=== PATIENT | female | born 1995 | race Caucasian/White ===

== ENCOUNTER 2018-09-14 19:55 | Outpatient (REF) | payer MEDICAID, SELFPAY ==
[2018-09-14 20:28] LABS: HCT 41.8 % (36.0-46.0); HGB 13.7 g/dL (12.0-15.5); Mean Corp. HGB Concentration 32.8 g/dL (32.0-36.0); Mean Corpuscular Hemoglobin 28.3 pg (27.0-33.0); Mean Corpuscular Volume 86.4 fL (80-95); Mean Platelet Volume 12.2 fL (8.0-11.0); Platelet Count 184 x1000/uL (130-400); RBC 4.84 m/cumm (4.00-5.20); RBC Distribution Width 14.9 % (11.7-14.6); White Blood Cell Count 9.16 k/cumm (4.4-10.8)
[2018-09-14 22:33] LABS: ALT 18 U/L (12-78); AST 16 U/L (15-37); Albumin 3.8 g/dL (3.4-5.0); Alkaline Phosphatase 74 U/L (46-116); Anion Gap 11.1 mmol/L (3-11); BUN 12 mg/dL (7-18); Bilirubin, Total 0.2 mg/dL (0.2-1.0); CO2 24.9 mmol/L (21.0-32.0); CREATININE 0.61 mg/dL (0.55-1.02); Calcium 9.1 mg/dL (8.5-10.1); Chloride 103 mmol/L (98-107); Glucose 122 mg/dL (70-100); Potassium 4.5 mmol/L (3.5-5.1); Sodium 139 mmol/L (136-145); Total Protein 6.5 g/dL (6.4-8.2)
[2018-09-16 10:55] LABS: Syphilis Serology (RPR) Negative (Negative)
[2018-09-16 11:20] LABS: HIV-1/2 Ag & Ab Screen Negative (NEGAT)
[2018-09-16 12:43] LABS: Chlamydia Result Negative; GC Result Negative; Specimen Description URINE
== END 2018-09-14 20:15 ==
LOC: NCHCN 19:55
PROVIDERS: PCP Physician Assistant Medical; Visit Provider Physician Assistant Medical
DX: K29.70 Gastritis, unspecified, without bleeding (principal); Z11.3 Encounter for screening for infections with a predominantly sexual mode of transmission; Z11.4 Encounter for screening for human immunodeficiency virus [HIV]
CPT/HCPCS: 80053; 85027; 87389; 87491; 87591; 86592

== ENCOUNTER 2018-10-17 18:14 | Outpatient (REF) | payer MEDICAID, SELFPAY | END 2018-10-17 18:34 | LOC: NCHCN 18:14 | PROVIDERS: PCP Physician Assistant Medical; Visit Provider Physician Assistant Medical | DX: R10.9 Unspecified abdominal pain (principal) | CPT/HCPCS: 87086 ==

== ENCOUNTER 2019-10-10 15:16 | Outpatient (REF) | payer MEDICAID, SELFPAY ==
[2019-10-10 18:50] LABS: Abs Immature Grans 0.02 k/cumm (0.0-0.09); Absolute Basophil Count 0.02 k/cumm (0.0-0.2); Absolute Lymphocyte Count 2.64 k/cumm (1.2-3.4); Absolute Monocyte Count 0.69 k/cumm (0.11-0.7); Basophils % 0.2; Eosinophils % 1.9; HCT 45.6 % (36.0-46.0); HGB 14.9 g/dL (12.0-15.5); Immature Grans % 0.2; Lymphocytes % 25.5; Mean Corp. HGB Concentration 32.7 g/dL (32.0-36.0); Mean Corpuscular Volume 88.7 fL (80-95); Mean Platelet Volume 11.5 fL (8.0-11.0); Monocytes % 6.7; Neutrophils % 65.5; Platelet Count 210 x1000/uL (130-400); RBC 5.14 m/cumm (4.00-5.20); RBC Distribution Width 14.5 % (11.7-14.6); White Blood Cell Count 10.37 k/cumm (4.4-10.8)
[2019-10-10 19:07] LABS: ALT 14 U/L (14-59); AST 12 U/L (15-37); Albumin 4.2 g/dL (3.4-5.0); Alkaline Phosphatase 83 U/L (46-116); Anion Gap 9.3 mmol/L (3-11); BUN 12 mg/dL (7-18); Bilirubin, Total 0.3 mg/dL (0.2-1.0); CO2 28.7 mmol/L (21.0-32.0); Calcium 9.2 mg/dL (8.5-10.1); Chloride 103 mmol/L (98-107); Glucose 84 mg/dL (74-106); Magnesium 2.2 mg/dL (1.8-2.4); Sodium 141 mmol/L (136-145); TSH (W/Ref FT4) 1.03 uIU/mL (0.36-3.74); Total Protein 7.1 g/dL (6.4-8.2)
== END 2019-10-10 15:36 ==
LOC: NCHCN 15:16
PROVIDERS: PCP Physician Assistant Medical; Visit Provider Physician Assistant
DX: R25.1 Tremor, unspecified (principal); R07.89 Other chest pain; G43.909 Migraine, unspecified, not intractable, without status migrainosus; Z82.0 Family history of epilepsy and other diseases of the nervous system
CPT/HCPCS: 80053; 83735; 84443; 85025

== ENCOUNTER 2019-11-09 16:15 | Outpatient (REF) | payer MEDICAID, SELFPAY ==
--- NOTE | 2019-11-09 14:45 | PAPFT_PTH ---
PATIENT: Karine Jean LOC: [facility]#:[id number] AGE/SX: 23/F ROOM: RE11/09/[address]: Varun Smith : 1995 BED: DIS: 11/09/2019 SPEC #: [id number] RECD: 11/09/19 18:15 STATUS: SOO RECeleste #: [id number] ADAN: 11/09/19 14:[address]: Varun Smith DEPT: [facility] Cytology RECD BY: Cesia Siegel ENTERED: 11/09/19 18:15 SP TYPE: PAPFT OTHR DR: Marin Rosenberg V Tissues: 1 - CX/ENDOCX FOR PAP SMEARS Procedures: PAP THIN PREP/UVM Screening Comments: [id number]
[2019-11-09 18:55] LABS: HCT 41.6 % (36.0-46.0); HGB 13.8 g/dL (12.0-15.5); Mean Corp. HGB Concentration 33.2 g/dL (32.0-36.0); Mean Corpuscular Hemoglobin 29.3 pg (27.0-33.0); Mean Corpuscular Volume 88.3 fL (80-95); Mean Platelet Volume 11.4 fL (8.0-11.0); Platelet Count 200 x1000/uL (130-400); RBC 4.71 m/cumm (4.00-5.20); RBC Distribution Width 14.1 % (11.7-14.6); White Blood Cell Count 12.07 k/cumm (4.4-10.8)
[2019-11-09 19:09] LABS: C-Reactive Protein 0.25 mg/dL (0.0-0.3)
[2019-11-09 19:52] LABS: ESR 12 mm/hr (0-20)
[2019-11-13 11:20] LABS: HIV-1/2 Ag & Ab Screen Negative (Negative)
[2019-11-13 11:37] LABS: Hepatitis C Ab w Rflx HCV PCR Negative (Negative)
[2019-11-13 13:00] LABS: Syphilis Serology (RPR) Negative (Negative)
[2019-11-14 07:52] LABS: Chlamydia Result Negative (Negative); GC Result Negative (Negative)
== END 2019-11-09 16:35 ==
LOC: NCHCN 16:15
PROVIDERS: PCP Physician Assistant Medical; Visit Provider Internal Medicine
DX: N73.9 Female pelvic inflammatory disease, unspecified (principal); Z11.4 Encounter for screening for human immunodeficiency virus [HIV]; Z11.3 Encounter for screening for infections with a predominantly sexual mode of transmission; Z11.59 Encounter for screening for other viral diseases; Z12.4 Encounter for screening for malignant neoplasm of cervix
CPT/HCPCS: 85027; 85652; 86803; 87389; 87491; 87591; 88142; 86140; 86592; 87480; 87510; 87660

== ENCOUNTER 2020-06-18 17:17 | Outpatient (REF) | payer MEDICAID, SELFPAY ==
--- NOTE | 2020-06-18 16:30 | PAPFT_PTH ---
PATIENT: Karine Jean LOC: [facility]#:[id number] AGE/SX: 24/F ROOM: RE06/18/[address]: Nery Barreto : 1995 BED: DIS: 06/18/2020 SPEC #: [id number] RECD: 06/19/20 12:52 STATUS: SOO REQ #: [id number] ADAN: 06/18/20 16:[address]: Nery Barreto DEPT: [facility] Cytology RECD BY: Cesia Siegel ENTERED: 06/19/20 12:53 SP TYPE: PAPFT OTHR DR: Marin Rosenberg V Tissues: 1 - CX/ENDOCX FOR PAP SMEARS Procedures: PAP THIN PREP/UVM Screening Comments: [id number]
[2020-06-18 20:23] LABS: Abs Immature Grans 0.04 10^3/uL (0.0-0.06); Absolute Basophil Count 0.03 10^3/uL (0.0-0.2); Absolute Lymphocyte Count 2.41 10^3/uL (1.2-3.4); Absolute Monocyte Count 0.41 10^3/uL (0.1-0.8); Absolute Neutrophil Count 7.07 10^3/uL (1.2-6.7); Basophils % 0.3; HCT 42.7 % (36.0-46.0); HGB 13.7 g/dL (11.2-15.7); Immature Grans % 0.4; MCH 29.2 pg (27.0-33.0); MCHC 32.1 % (32.0-36.0); MPV 12.1 fL (8.0-11.0); Monocytes % 4.1; Neutrophils % 70.2; Nucleated RBC 0 %; Platelet Count 195 10^3/uL (130-400); RBC 4.69 10^6/uL (3.93-5.22); RDW 13.5 % (11.7-14.6); RDW-SD 45.1 fL; WBC 10.06 10^3/uL (4.4-10.8)
[2020-06-18 20:39] LABS: Iron 88 ug/dL (50-170)
[2020-06-18 20:40] LABS: Anion Gap 8.6 mmol/L (3-11); BUN 19 mg/dL (7-18); CO2 26.4 mmol/L (21.0-32.0); CREATININE 0.63 mg/dL (0.55-1.02); Calcium 9.5 mg/dL (8.5-10.1); Chloride 105 mmol/L (98-107); Glucose 91 mg/dL (74-106); Sodium 140 mmol/L (136-145)
[2020-06-18 20:53] LABS: HCG Qual (Serum) Negative
== END 2020-06-18 17:37 ==
LOC: NCHCN 17:17
PROVIDERS: PCP Physician Assistant Medical; Visit Provider Physician Assistant
DX: R10.2 Pelvic and perineal pain (principal); N93.9 Abnormal uterine and vaginal bleeding, unspecified; Z12.4 Encounter for screening for malignant neoplasm of cervix
CPT/HCPCS: 80048; 88142; 83540; 84703; 85025

== ENCOUNTER 2020-08-14 15:06 | Outpatient (REF) | payer MEDICAID, SELFPAY ==
[2020-08-16 21:28] LABS: SARS-CoV-2 RNA Undetected (Undetected); SARS-CoV-2 Specimen Source Nasal
== END 2020-08-14 15:26 ==
LOC: NCHCN 15:06
PROVIDERS: PCP Physician Assistant; Visit Provider Physician Assistant
DX: J06.9 Acute upper respiratory infection, unspecified (principal)
CPT/HCPCS: U0003

== ENCOUNTER 2020-08-28 15:08 | Outpatient (REF) | payer MEDICAID, SELFPAY ==
[2020-08-28 21:06] LABS: Abs Immature Grans 0.03 10^3/uL (0.0-0.06); Absolute Basophil Count 0.03 10^3/uL (0.0-0.2); Absolute Eosinophil Count 0.19 10^3/uL (0.0-0.7); Absolute Lymphocyte Count 2.52 10^3/uL (1.2-3.4); Absolute Monocyte Count 0.42 10^3/uL (0.1-0.8); Absolute Neutrophil Count 6.13 10^3/uL (1.2-6.7); Basophils % 0.3; HCT 43.1 % (36.0-46.0); HGB 13.8 g/dL (11.2-15.7); Immature Grans % 0.3; MCH 28.6 pg (27.0-33.0); MCV 89.2 fL (80-95); MPV 11.8 fL (8.0-11.0); Monocytes % 4.5; Neutrophils % 65.9; Nucleated RBC 0 %; Platelet Count 198 10^3/uL (130-400); RBC 4.83 10^6/uL (3.93-5.22); RDW-SD 42.5 fL; WBC 9.32 10^3/uL (4.4-10.8)
[2020-08-28 21:47] LABS: Iron 86 ug/dL (50-170); Total Iron Binding Capacity 311 ug/dL (250-450); Transferrin Sat 28 % (15-50)
[2020-08-28 22:25] LABS: ALT 18 U/L (14-59); AST 18 U/L (15-37); Albumin 4.3 g/dL (3.4-5.0); Alkaline Phosphatase 82 U/L (46-116); BUN 15 mg/dL (7-18); Bilirubin, Total 0.3 mg/dL (0.2-1.0); Calcium 9.2 mg/dL (8.5-10.1); Chloride 103 mmol/L (98-107); Ferritin 37 ng/mL (8-252); Glucose 92 mg/dL (74-106); Potassium 4.1 mmol/L (3.5-5.1); Sodium 138 mmol/L (136-145); TSH (W/Ref FT4) 1.73 uIU/mL (0.36-3.74); Total Protein 7.4 g/dL (6.4-8.2); Vitamin B12 489 pg/mL (193-986)
[2020-08-28 23:51] LABS: FREE T4 1.28 ng/dL (0.76-1.46)
[2020-08-29 05:21] LABS: Vitamin D 25 Total 13.7 ng/ml (30-100)
[2020-08-29 18:30] LABS: T3, Total 132 ng/dL (97-169)
== END 2020-08-28 15:28 ==
LOC: NCHCN 15:08
PROVIDERS: PCP Physician Assistant; Visit Provider Physician Assistant
DX: J06.9 Acute upper respiratory infection, unspecified (principal); R53.83 Other fatigue; R63.5 Abnormal weight gain; R00.2 Palpitations
CPT/HCPCS: 80053; 82306; 82607; 82728; 83540; 83550; 84439; 84443; 84480; 85025

== ENCOUNTER 2021-01-07 16:01 | Outpatient (REF) | payer MEDICAID, SELFPAY ==
[2021-01-13 14:37] LABS: IgA 97 mg/dL (85-499); Interpretation (See Note); Tissue Transglutaminase IgA <1.2 U/mL (<4.0)
== END 2021-01-07 16:02 | disposition home or self-care (01) ==
LOC: NCHCN 16:01
PROVIDERS: PCP Physician Assistant; Visit Provider Physician Assistant
DX: R14.0 Abdominal distension (gaseous) (principal)
CPT/HCPCS: 82784; 83516

== ENCOUNTER 2021-04-30 20:07 | Emergency (ER) | payer MEDICAID, SELFPAY ==
[2021-04-30 20:38] VITALS: BP 126/77; PULSE 99; RESP 18; TEMP 36.9; O2SAT 97
--- NOTE | 2021-04-30 21:10 | ED.GENADUL_ITS ---
Discharge Plan Disposition Patient Disposition: HOME Condition: Stable Discharge Details Clinical Impression: Cellulitis Primary Care Provider: Nery Barreto ED Provider: Radha Mendoza Home Meds and New Rx's Prescriptions: New ciprofloxacin HCl [Cipro] 500 mg tablet 500 mg PO BID Qty: 14 RF: 0 Discharge Instructions Instructions: Cellulitis (ED) Additional Instructions: warm moist compresses 4 times daily elevate leg as much as possible during the day continue antibiotics as previously prescribed. add ciprofloxacin 500 mg twice daily Referrals: Nery Barreto [Primary Care Provider] - (in 1-2 days for recheck) Discharge Data Discharge Date/Time-TO BE ENTERED AT DEPARTURE: 04/30/21 21:46 Medical Decision Making This is a 25-year-old who presents to the emergency department after being started on clindamycin for right lower extremity cellulitis. There was no noted drainable abscess on her first evaluation. The erythema as well within skin markings on the original lesion there has been development of a second lesion proximal to the first. Again there is no fluctuant area noted for drainage. She has no systemic signs of infection. She has only received 3 doses of clindamycin so I do not feel she has failed oral antibiotics at this point as it has not even been 24 hours. In addition to that her original lesion has receded from the marked area. No labs are obtained I feel it is reasonable to continue with the clindamycin as previously directed but will add ciprofloxacin and these antibiotics are chosen secondary to her allergy profile where she is allergic to sulfa and pcn. She is safe for discharge home has been given instructions for elevation warm moist compresses and to continue antibiotics she should call her primary care provider tomorrow morning for follow-up appointments and rehab Medical Records Medical records reviewed: Yes I reviewed the patient's medical records. Medical records narrative: Medical records have been obtained from [facility] and reviewed HPI General Mode of arrival: ambulatory . Date/Time Provider Initiated Documentation: 04/30/21 20:29 . Limitations to Documentation: no limitations . Information obtained by: patient . HPI Narrative: Patient presents to the emergency department after being evaluated last evening at [facility] for complaints of right lower extremity erythema most consistent with an insect bite. There was a central area that she says was having some drainage. The area is marked with a skin marker and the erythema from this wound was well within the skin markings. There is a second wound proximal that is not marked with the appearance of a 2 mm bite saturnino with approximately 4 cm surrounding erythema. There is no fluctuant area identified. She was placed on clindamycin and has taken 3 doses she has not had fever or signs of systemic infection Related Data Home Medications Medication Instructions Recorded Confirmed ciprofloxacin HCl [Cipro] 500 mg PO BID #14 tab 04/30/21 Previous Rx's Medication Instructions Recorded ciprofloxacin HCl [Cipro] 500 mg PO BID #14 tab 04/30/21 Allergies Allergy/AdvReac Type Severity Reaction Status Date / Time citalopram Allergy Other (See Unverified 04/30/21 20:43 Comment) Penicillins Allergy Skin Rash Unverified 04/30/21 20:43 acetaminophen [From Vicodin] AdvReac Other (See Unverified 04/30/21 20:43 Comment) hydrocodone [From Vicodin] AdvReac Other (See Unverified 04/30/21 20:43 Comment) sertraline [From Zoloft] AdvReac Visual Unverified 04/30/21 20:43 Disturbances General Stated Complaint: RashLesion MARCOS: 3 Review of Systems Constitutional Constitutional: Denies fever(s) Cardiovascular Cardiovascular: Denies chest pain Respiratory Respiratory: Denies cough Musculoskeletal Musculoskeletal: Denies myalgias, Denies arthralgias and Denies joint swelling Integumentary/Breasts Skin/Breast: Reports lesions and Reports rash PFSH Social History Smoking/Tobacco Use Status: Never Smoking risk assessment performed?: Yes Alcohol Intake: current Drug use: Never Substance use type: does not use Do you feel safe at home: Yes Do you feel safe in your relationship?: Yes Exam Const General: cooperative, healthy appearing, comfortable, no acute distress and well developed Nutritional Appearance: average body habitus Orientation: alert, awake and oriented x3 HENMT Head: normal to inspection Mouth: oral mucosae normal Resp Effort & Inspection: normal respiratory effort Cardio Rate: regular rate Rhythm: regular rhythm Skin Lesions: lesion noted (two areas on right lower extremity approx 2 mm consistent with insect bite) Rashes: rashes noted (Surrounding erythema well within skin markings on lesion 1) Other: There is no fluctuant area appreciated. Area of erythema surrounding both lesions approximately 4 cm Neuro General: patient alert, patient awake and patient oriented x3 Extrem General: normal to inspection, full ROM and no pedal edema Course Vital Signs Vital signs: Vital Signs Temperature 36.9 C 04/30/21 20:38 Pulse 99 H 04/30/21 20:38 Respiratory Rate 18 04/30/21 20:38 Blood Pressure 126/77 04/30/21 20:38 Pulse Oximetry 97 04/30/21 20:38 Temperature 36.9 C 04/30/21 20:38 Pulse 99 H 04/30/21 20:38 Respiratory Rate 18 04/30/21 20:38 Blood Pressure 126/77 04/30/21 20:38 Blood Pressure Position Sitting 04/30/21 20:38 Pulse Oximetry 97 04/30/21 20:38 Oxygen Delivery Method Room Air 04/30/21 20:38 Oxygen Flow Rate 0 04/30/21 20:38 Pain Level 8 04/30/21 20:38
== END 2021-04-30 21:46 | disposition home or self-care (01) ==
PROVIDERS: Emergency Provider Nurse Practitioner Acute Care; PCP Physician Assistant
DX: L03.115 Cellulitis of right lower limb (principal)
CPT/HCPCS: 99283

== ENCOUNTER 2021-05-01 19:34 | Emergency (ER) | payer MEDICAID, SELFPAY ==
[2021-05-01 19:41] VITALS: BP 123/78; PULSE 96; RESP 18; TEMP 36.4; O2SAT 98
--- NOTE | 2021-05-01 20:44 | ED.GENADUL_ITS ---
Discharge Plan Disposition Patient Disposition: HOME Condition: Stable Discharge Details Clinical Impression: Cellulitis of left leg Primary Care Provider: Marin Rosenberg V ED Provider: David Schuster Home Meds and New Rx's Prescriptions: No Action naproxen 500 mg tablet 500 mg PO BID PRN (Reason: pain) Qty: 30 RF: 3 sumatriptan succinate [Imitrex] 50 mg tablet See Rx Instructions PO .COMPLEX Qty: 10 RF: 2 citalopram 20 mg tablet 20 mg PO DAILY Qty: 60 RF: 6 alprazolam [Xanax] 0.5 mg tablet 0.5 mg PO DAILY PRN (Reason: anxiety) Qty: 30 RF: 0 Lupron Depot 3.75 mg syringe kit 3.75 mg IM QMONTH Qty: 1 RF: 5 clindamycin HCl 300 mg capsule 300 mg PO QID RF: 0 ciprofloxacin HCl 500 mg tablet 500 mg PO BID RF: 0 Discharge Instructions Instructions: Cellulitis (ED) Additional Instructions: At this time I am concerned that you have a small DVT/blood clot in your leg. You do need a formal ultrasound to evaluate this further. We have given you a dose of Lovenox which will last 24 hours, this is a blood thinner. In regards to the infection on your leg, there is no evidence of abscess at this time, however this still needs to be watched and followed closely. Please follow-up in the emergency department tomorrow after your ultrasound for reassessment and discussion of the ultrasound findings. Please continue taking your antibiotics as directed, and continue monitoring the redness around your leg closely. Keep your leg elevated as often as possible. Please use a compression stocking if this is tolerable. If you notice any worsening of your symptoms, or any new symptoms such as vomiting, diarrhea, fever, chills, shortness of breath, chest pain, numbness, weakness, or fainting , please return immediately to the emergency department for reevaluation. Please follow up with your primary care provider as soon as possible for reassessment and reevaluation. As always, it was a pleasure participating in your medical care today. Referrals: Marin Rosenberg V [Primary Care Provider] - Medical Decision Making 25-year-old female with a past medical history of multiple antibiotic allergies, presents for evaluation of wound recheck. Patient was bit on the left leg by an unknown insect or etiology, month ago, 4 days ago she was seen by her primary care provider when she noticed rash redness and some mild drainage. She was started on clindamycin at that time. She has been taking this as directed, but was seen yesterday in our emergency department and an additional Cipro was added to her regimen. She comes back for wound recheck today. She has been taking the antibiotics as directed. She denies fever or chills. She admits to continued soreness in the area of focus on the left medial thigh, and does admit to mild soreness proximally and distally to it. She denies any new trauma. She denies any other significant change in pain. She denies any control use and states that her tubes are tied. She denies any estrogen use. She denies any history of blood clots. She does not feel that the redness has g margie worse at this time. No other complaints at this time. No other modifying factors. Resume rest physical exam demonstrates erythema left medial leg, there are 2 purple rings that were outlined, and the 2 stages of redness appear to be well circumscribed within them. And not extravasating out from them. No evidence of abscess. She appears to be responding well to the antibiotic therapy. However there does appear to be concern for potential DVT in the posterior popliteal space/vessels. No ultrasound formally is available at this time. She has no chest pain or shortness of breath, no tachycardia or hypoxemia. No evidence of pulmonary embolism. With no fever or any evidence of worsening infection I do not see an indication for changing or altering her antibiotic therapy at this time. No indication for IV antibiotics currently. However with the potential for mild DVT I do feel that formal ultrasound is indicated. We will give a dose of 1.5 mg/kg of Lovenox, for 24-hour DVT treatment, and schedule outpatient ultrasound tomorrow morning. Recommend follow-up in the ED for reassessment. Discussed red flags which to return. Patient notably stable at time of discharge. Also of note the patient states that her primary care provider did discuss getting an outpatient surgical evaluation. No indication for emergent inpatient surgical eval at this time. At the patient's request we will place an outpatient surgical referral for more chronic wound assessment. We do recommend that the patient keep her leg elevated as often as possible. Discussed red flags which to return. Of note the patient seems to have 2 accounts under the same name. The patient says that yesterday is not found in the chart under this current name/visit. The case has been sent to [facility]/medical records for unification of these 2 accounts. I have extensively reviewed the treatment plan and discharge instructions with the patient. I have addressed all patient concerns at this time. The patient was made aware of what symptoms to monitor for that would warrant a return to the emergency department. Discussed the plan with the patient, they demonstrate verbal understanding and agreement with our assessment and plan at this time. The documentation in this chart was dictated using Twitter dictation software. Please excuse any dictation errors. HPI General Date/Time Provider Initiated Documentation: 05/01/21 19:35 . HPI Narrative: 25-year-old female with a past medical history of multiple antibiotic allergies, presents for evaluation of wound recheck. Patient was bit on the left leg by an unknown insect or etiology, month ago, 4 days ago she was seen by her primary care provider when she noticed rash redness and some mild drainage. She was started on clindamycin at that time. She has been taking this as directed, but was seen yesterday in our emergency department and an additional Cipro was added to her regimen. She comes back for wound recheck today. She has been taking the antibiotics as directed. She denies fever or chills. She admits to continued soreness in the area of focus on the left medial thigh, and does admit to mild soreness proximally and distally to it. She denies any new trauma. She denies any other significant change in pain. She denies any control use and states that her tubes are tied. She denies any estrogen use. She denies any history of blood clots. She does not feel that the redness has gotten worse at this time. No other complaints at this time. No other modifying factors. She denies any chest pain or shortness of breath. Related Data Home Medications Medication Instructions Recorded Confirmed naproxen 500 mg tablet 500 mg PO BID PRN #30 tab 06/24/20 12/31/20 alprazolam 0.5 mg tablet 0.5 mg PO DAILY PRN #30 tab 07/25/20 12/31/20 citalopram 20 mg tablet 20 mg PO DAILY #60 tab 07/25/20 05/01/21 sumatriptan succinate 50 mg tablet See Rx Instructions PO .COMPLEX 08/06/20 12/31/20 #10 tab leuprolide 3.75 mg intramuscular 3.75 mg IM QMONTH #1 ea 01/28/21 01/28/21 syringe kit ciprofloxacin HCl 500 mg PO BID 05/01/21 05/01/21 clindamycin HCl 300 mg PO QID 05/01/21 05/01/21 Previous Rx's Medication Instructions Recorded naproxen 500 mg tablet 500 mg PO BID PRN #30 tab 06/24/20 alprazolam 0.5 mg tablet 0.5 mg PO DAILY PRN #30 tab 07/25/20 citalopram 20 mg tablet 20 mg PO DAILY #60 tab 07/25/20 sumatriptan succinate 50 mg tablet See Rx Instructions PO .COMPLEX 08/06/20 #10 tab leuprolide 3.75 mg intramuscular 3.75 mg IM QMONTH #1 ea 01/28/21 syringe kit Allergies Allergy/AdvReac Type Severity Reaction Status Date / Time acetaminophen [From Vicodin] Allergy Severe get very Verified 09/18/20 14:05 mad and blacks out. adhesive Allergy Severe itchy and Verified 09/18/20 14:05 blisters amoxicillin Allergy Severe Hives Verified 09/18/20 14:05 ethinyl estradiol Allergy Severe hives, Verified 09/18/20 14:05 [From Aviane] tachycardia hydrocodone [From Vicodin] Allergy Severe get very Verified 09/18/20 14:05 mad and blacks out. hydromorphone [From Dilaudid] Allergy Severe migrain Verified 09/18/20 14:05 headache, hot flashes levonorgestrel [From Aviane] Allergy Severe hives, Verified 09/18/20 14:05 tachycardia naproxen Allergy Severe abdominal Verified 09/18/20 14:05 pain Penicillins Allergy Severe hives Verified 09/18/20 14:05 sertraline [From Zoloft] Allergy Severe hallucinati Verified 09/18/20 14:05 ons Sulfa (Sulfonamide Allergy Severe nose Verified 06/24/20 13:35 Antibiotics) bleeds, vomiting General Stated Complaint: GenMedical MARCOS: 3 Review of Systems All systems reviewed & are unremarkable except as noted in HPI and below PFSH Medical History Chronic pelvic pain in female Onset with menarche. Not responsive to OCPs. 07/2020. Depo-Lupron 7.5 mg #1 dose. Endometriosis Sterilization BTL at time of final . Surgical History H/O laparoscopy For chronic pelvic pain. Laparoscopic fulguration of endometriosis implants. History of delivery X3. 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 3.ENT: Atraumatic external nose and ears. Moist MM. Neck: Symmetric, trachea midline, No thyromegaly. 4.CVS: +S1/S2, No murmurs or gallops. Peripheral pulses 2+ and equal in all extremities. Brisk capillary refill in all extremities. 5.RESP: Unlabored respiratory effort. Clear to auscultation bilaterally. No wheezes rales or rhonchi 6.GI: Soft, Nontender/Nondistended, No hepatosplenomegaly. No guarding or rebound. 7.MSK: Normocephalic/Atraumatic, Extremities w/o deformity, No cyanosis or clubbing, Normal movement of all extremities. Left medial calf demonstrates 2 small central lesions, both about an inch and 1/2 to 2 inches apart, mild redness and bruising around it. The area of most pronounced redness is well circumscribed by the purple marker, there is an area of ping pong table assembler erythema surrounding this, with a diameter of roughly 7 to 8 cm. This is also well demarcated by the purple marker that was placed yesterday. There does not seem to be extravasation past this marked site at this time. Mild tenderness to the area. Bedside limited ultrasound shows no evidence of fluctuance abscess or fluid collection. However bedside vascular ultrasound traveling up towards the knee does demonstrate diminished capability of compression for the deeper veins around the knee itself. Concern for potential DVT. Distal pulses and sensation intact. 8.Skin: Warm, Dry. 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 Sensation grossly intact, no focal neurologic deficits. 10.Psych: (AAO) x3. Appropriate mood and affect Course Vital Signs Vital signs: Vital Signs Temperature 36.4 C L 05/01/21 19:41 Pulse 96 H 05/01/21 19:41 Respiratory Rate 18 05/01/21 19:41 Blood Pressure 123/78 05/01/21 19:41 Pulse Oximetry 98 05/01/21 19:41 Temperature 36.4 C L 05/01/21 19:41 Pulse 96 H 05/01/21 19:41 Respiratory Rate 18 05/01/21 19:41 Respiratory Effort 05/01/21 20:15 Blood Pressure 123/78 05/01/21 19:41 Blood Pressure Position Sitting 05/01/21 19:41 Pulse Oximetry 98 05/01/21 19:41 Oxygen Delivery Method Room Air 05/01/21 19:41 Oxygen Flow Rate 0 05/01/21 19:41 Pain Level 5 05/01/21 19:41
[2021-05-01] MEDS: Enoxaparin 120 MG/0.8 ML SYR SC (21:00)
--- NOTE | 2021-05-01 22:09 | NUR.NOTE ---
referral [facility]ed to [facility] to f/u in 1-2wks, chronic wound.Nursing Note:
== END 2021-05-01 22:07 | disposition home or self-care (01) ==
PROVIDERS: Emergency Provider Student in an Organized Health Care Education/Training Program; PCP Physician Assistant Medical
DX: L03.116 Cellulitis of left lower limb (principal)
CPT/HCPCS: 96372; 99284; 99282; J1650

== ENCOUNTER 2021-05-02 11:57 | Outpatient (CLI) | payer MEDICAID, SELFPAY ==
--- NOTE | 2021-05-02 | DI.US_ITS ---
Exam(s) US LOWER EXTREMITY VENOUS LT EXAM: US LOWER EXTREMITY VENOUS LT CLINICAL HISTORY: SWELLING, CELLULITIS, ? DVT. TECHNIQUE: Lower extremity venous ultrasound performed using grayscale, color-flow, and spectral Do ppler analysis. COMPARISON: No exams were available for comparison FINDINGS: The common femoral, femoral and popliteal veins demonstrate normal compressibility, augmentation, and color Doppler. The posterior tibial veins are patent. No saphenous vein thrombosis or other superfi cial venous thrombosis is seen. No hematoma or Benjamin's cyst is seen. IMPRESSION: Negative lower extremity ultrasound. No evidence of DVT. DATA REPOSITORY:
== END 2021-05-02 12:17 ==
PROVIDERS: PCP Physician Assistant Medical; Visit Provider Student in an Organized Health Care Education/Training Program
DX: L03.116 Cellulitis of left lower limb (principal)
CPT/HCPCS: 93971

== ENCOUNTER 2021-05-02 12:05 | Emergency (ER) | payer MEDICAID, SELFPAY ==
--- OUTSIDE RECORDS SUMMARY | 2021-05-02 12:10 | XMS_ITS ---
:1995 Author Care Team Providers Name Role Phone BRAYAN LAY Primary Care Provider [phone] Allergies Code Code Name Reaction Severity Status Onset System Adhesive Tape Edema ? Active ? Aviane Hives ? Active ? ? Tachycardia ? Active ? 335162 RxNorm Dilaudid Headache Moderate to Active ? Severe 7258 RxNorm Naproxen Abdominal Pain ? Active ? Penicillins Hives ? Active ? Sulfa Vomiting Moderate to Active ? (Sulfonamide Severe Antibiotics) 012786 RxNorm Tylenol-codeine Headache Moderate to Active ? #3 Severe 093307 RxNorm Vicodin Hallucinations ? Active ? 77223 RxNorm Zoloft Hallucinations ? Active ? Medications Name Status Start Date Stop Date ? ? amoxicillin 875 mg tablet Completed 02/18/20162015 1 (one) Tablet: bid - twice daily Anusol-HC 2.5 % topical cream with perineal applicator Completed 08/05/2012 08/23/2012 apply Cream: to hemorrhoids tid prn Ativan 0.5 mg tablet Completed 06/22/2016 06/23/2016 1 (one) Tablet: 1 hour prior to procedure and may repeat in 45 minutes Aviane 0.1 mg-20 mcg tablet Completed 10/11/201302/2013 1 Tablet: daily azithromycin 250 mg tablet Completed ? 11/22 Bactrim DS 800 mg-160 mg tablet Completed 08/05/2012 08/08/2012 1 Tablet: bid - twice daily Bactroban 2 % topical ointment Completed 09/08/2012 1 11/08/2011 apply Ointment: bid - twice daily cephalexin 250 mg capsule Completed 10/11/20132012 1 Capsule: qid - four times a day cephalexin 500 mg tablet Completed 03/21/201403/31/2 014 1 (one) Tablet Tablet: four times daily citalopram 10 mg tablet Completed 01/08/2020 04/02/20 20 1 (one)and 11/09 : daily citalopram 20 mg tablet Active ? Not avai lable Take 1 tablet every day by oral route. clindamycin 1.2 % (1 % base)-benzoyl peroxide 5 % topical ge l Completed 02/28/2015 08/01/2015 1 (one) Unspecified Unspecified: daily clindamycin HCl 300 mg capsule Active ? N ot available Take 1 capsule 4 times a day by oral route for 10 days. cyclobenzaprine 10 mg tablet Completed ? Depo-Provera 150 mg/mL intramuscular suspension Completed 09/22/2012 09/22/2012 1 Suspension: Every three months Diflucan 150 mg tablet Unknown 03/29/2014 Not avail able 1 (one) Tablet: one time dose doxycycline hyclate 100 mg capsule Active ? Not available Take 1 capsule twice a day by oral route. doxycycline hyclate 100 mg Completed ? 11/22 tablet E-Z Spacer Completed 03/07/2013 03/07/2013 1 Device: daily erythromycin with ethanol 2 % topical gel Completed 201104/20/2012 1 Gel: qhs - at bedtime etodolac 400 mg tablet Completed 09/22/2012 3 1 Tablet: two times daily ferrous gluconate 324 mg (38 mg iron) tablet Completed 12/25/2014 1 (one) Tablet: two times daily fexofenadine 60 mg tablet Completed 04/20/20122011 1 Tablet: bid - twice daily Flovent HFA 44 mcg/actuation aerosol inhaler Completed 12/02/2015 2 (two) Puff: two times daily fluticasone propionate 50 Completed ? 2019 mcg/actuation nasal spray,suspension ibuprofen 600 mg tablet Completed 07/17/2013 04/17/20 14 1 Tablet: tid - three times a day Kapvay 0.1 mg tablet,extended release Completed ? 03/29/2020 Take 1 tablet every day by oral route at bedtime. Keflex 500 mg capsule Completed 02/18/2016 02/25/2016 1 (one) Capsule: tid - three times a day Loestrin /20 (21) 1 mg-20 mcg tablet Completed 12/05/2013 12/05/2013 1 (one) Tablet: daily loratadine 10 mg tablet Completed 02/01/2013 06/20/20 13 1 Tablet: daily meclizine 12.5 mg tablet Completed 09/08/2012 013 half - 1 Tablet: every 8 hours prn vertigo meclizine 25 mg tablet Completed 06/12/2014 5 (one half) to 1 Tablet Tablet: Up to four times daily meloxicam 7.5 mg tablet Completed 03/13/2015 08/01/20 15 1 (one) Tablet Tablet: qd - daily naproxen 500 mg tablet Completed ? 0 Ortho Evra 150 mcg-35 mcg/24 hr transdermal patch Completed 12/05/2013 12/05/2013 1 Patch WK: weekly Percocet 5 mg-325 mg tablet Completed 07/27/201307/09 1 Tablet: Q 4hr/PRN prednisone 20 mg tablet Completed ? 11/22/19 20 -Folic Acid 27 mg-1 mg tablet Completed 03/28/2014 12/25/2014 1 (one) Tablet(s) Tablet(s): daily Prilosec 20 mg capsule,delayed release Completed 2 12/09/[address]: daily Protonix 40 mg tablet,delayed release Completed 01/18/2015 01/18/2015 1 (one) Tablet DR: daily ranitidine 150 mg capsule Completed 01/18/20152014 1 (one) Capsule Capsule: bid - twice daily ranitidine 150 mg tablet Completed 08/28/2014 015 1 (one) Tablet: bid - twice daily NEEDED Singulair 10 mg tablet Completed 09/05/2013 3 1 Tablet: one daily Terazol 3 0.8 % vaginal cream Completed 02/18/2016 1 (one) Applicator(s): at bedtime Terazol 7 0.4 % vaginal cream Completed 03/29/2014 1 (one) Cream: qhs - at bedtime trazodone 50 mg tablet Completed 04/20/2012 2 2 (two) Tablet: qhs - at bedtime triamcinolone acetonide 0.025 % topical cream Completed 08/01/2015 1 (one) Cream Cream: daily triamcinolone acetonide 0.1 % topical cream Active ? Not available APPLY A THIN LAYER TO THE AFFECTED AREA(S) BY TOPICAL ROUTE 2 T IMES PER DAY Tylenol-Codeine #3 300 mg-30 mg tablet Completed 12/25/2014 1-2 tablet(s): Every 6 hours as needed Xopenex HFA 45 mcg/actuation aerosol inhaler Completed 02/22/2014 2 (two) inhalations: Every 4 to 6 hours as needed Zofran 4 mg tablet Completed ? 03/29/2020 1 (one) Tablet every 6 hours prn nausea Problems Name Status Onset Date Source ? Anxiety Active ? ? Generalized Anxiety Disorder Active ? His tory Posttraumatic Stress Disorder Active ? ? Depressive Disorder Active ? History Acute Bronchitis Active ? History Disorder of Upper Respiratory System Active ? History Mild Intermittent Asthma Active ? History Endometriosis of Pelvic Peritoneum Active ? History Amenorrhea Active ? History Mild Hyperemesis Gravidarum Active ? Hist ory Anemia in Mother Complicating , Active ? History Childbirth AND/OR Puerperium Acne Active ? History Pain in Thoracic Spine Active ? History Low Back Pain Active ? History Sciatica Active ? History Muscle Pain Active ? History Lack of Energy Active ? History Headache Active ? History Palpitations Active ? History Lymphadenopathy Active ? History Cough Active ? History Dysuria Active ? History Electrocardiogram Abnormal Active ? Histo ry Routine Care Active ? History Venereal Disease Screening Active ? Histo ry Disorder of Active ? History Finding of Esophagus Active ? History Procedure Active ? History Radha Infection of Genital Region Active ? History Pelvic and Perineal Pain Active ? History Inflammatory Dermatosis Active ? History Procedure by Method Active ? History Procedures Date Name Performed by ? ? Bilateral Tubal Ligation Information not available ? Laparoscopy Diagnostic Information not a vailable Notes: endometriosis ? Dilation and Curettage Information not a vailable ? [place] Teeth Extraction Information not available ? Caesarean Section Information not avai lable Notes: x3 plus T/L 11/22/2019 US, Pelvis, Transabdominal + [facility] (Internal) Transvaginal [address] [place] [address] (Work Place) 03/11/2020 US, Pelvis, Transabdominal + [facility] (Internal) Transvaginal [address] [place] [address] (Work Place) Results Lab Results Date Name Specimen Result Interpretation Description Value Range Status Address ? 12/12/2019 Pathology Study TISS ? Report (see below) ? Final [facility] ab (Internal) : [address] 10/13/2019 Urinalysis, UR - UA-color yellow pale Final Hematite Dipstick, yellow [facility] (Internal) : [address] ? ? UR ABNORMA UA-appear cloudy clear Final [facility] ab (Internal) : [address] ? ? UR - UA-spec 1.020 1.003- Final Hematite Grav 1.035 [facility] ab (Internal) : [address] ? ? UR - UA-pH 7.0 [pH] 4.6-8. Final [place] [address] [pH] [facility] ab (Internal) : [address] ? ? UR - UA-leuk negative negati Final [facility] ab (Internal) : [address] ? ? UR - UA-nitrite negative negati Final [facility] ab (Internal) : [address] ? ? UR ABNORMA UA-prot trace negati Final [facility] ab (Internal) : [address] ? ? UR - UA-gluc negative negati Final [facility] ab (Internal) : [address] ? ? UR - UA-ketone negative negati Final [facility] ab (Internal) : [address] ? ? UR - UA-urobil normal normal Final [facility] ab (Internal) : [address] ? ? UR - UA-bili negative negati Final [facility] ab (Internal) : [address] ? ? UR - UA-blood negative negati [facility] ab (Internal) : [address] 10/13/2019 Urinalysis, UR - UA-WBC 0-3 [hpf] 0-3 [facility] [hpf] [facility] (Internal) : [address] ? ? UR - UA-RBC 0-2 [hpf] 0-2 Final Hematite [hpf] [facility] (Internal) : [address] t ? ? UR - UA-bacteri rare [hpf] none Final N orth a seen Country [hpf] Hospital [facility] ab (Internal) : [address] ? ? UR ABNORMA UA-epithel few [hpf] none Final N orth L ial seen [facility] [hpf] Hospital L ab (Internal) : [address] t ? ? UR ABNORMA UA-mucus few [hpf] none Final Nor th L seen [facility] [hpf] Hospital L ab (Internal) : [address] ? ? UR - Amorph many [hpf] ? Final [facility] (Internal) : [address] 10/13/2019 Test, UR - Hcgu negative negati Fi nal Hematite Urine ve [facility] (Internal) : [address] 01/14/2018 Venipuncture BLD ? Venpn* ? ? Final [facility] (Internal) : [address] 01/14/2018 Prolactin, S ? Prolactin 18.2 NG/mL ? F inal [facility] (Internal) : [address] 01/14/2018 CBC W/ Auto BLD High Wbc 10.1 5.0-10 Final N orth Diff 10*3/uL .0 [facility] 10*3/u Hospital L ab L (Internal) : [address] ? ? BLD ? Rbc 4.74 4.10-5 [facility] 10*6/uL .30 [facility] 10*6/u Hospital L ab L (Internal) : [address] ? ? BLD ? Hgb 12.1 g/dL 12.0-1 Final Hematite 6.0 Country g/dL Hospital L ab (Internal) : [address] ? ? BLD ? Hct 39.4 % 37.0-4 Final Hematite 7.0 % [facility] ab (Internal) : [address] ? ? BLD ? Mcv 83.1 fL 80.0-9 Final North 6.0 fL [facility] (Internal) : [address] [place] ? ? BLD Low Mch 25.5 pg 26.0-3 Final North 2.0 pg [facility] (Internal) : [address] [place] ? ? BLD Low Mchc 30.7 g/dL 31.0-3 Final North 5.0 Country g/dL Hospital L ab (Internal) : [address] [place] ? ? BLD High Rdw 14.6 % 11.5-1 Final North 4.5 % [facility] (Internal) : [address] [place] ? ? BLD ? Plt 232 10*3/uL 130-45 Final North 0 [facility] 10*3/u Hospital L ab L (Internal) : [address] [place] ? ? BLD ? Anc 7.74 ? Final North 10*3/uL [facility] (Internal) : [address] [place] ? ? BLD High Neutro 76.6 % 40.0-7 Final [facility] 5.0 % [facility] (Internal) : [address] [place] ? ? BLD Low Lymph 18.6 % 20.0-5 Final [facility] 0.0 % [facility] (Internal) : [address] [place] ? ? BLD ? Cedar 3.2 % 2.0-10 Final North .0 % [facility] (Internal) : [address] [place] ? ? BLD ? Eos 1.2 % 1.0-6. Final [facility] 0 % [facility] (Internal) : [address] [place] ? ? BLD ? Baso 0.2 % 0.0-1. Final North 0 % [facility] (Internal) : [address] [place] ? ? BLD ? Ig 0.2 % 0.0-0. Final North 9 % [facility] (Internal) : [address] [place] 11/30/2017 Venipuncture BLD ? Venpn* ? ? Final [facility] ab (Internal) : [address] [place] 11/30/2017 RBC Morphology, BLD ? Aniso small ? Daniela l Hematite Blood [facility] (Internal) : [address] ? ? BLD ? Oval occasional ? Final [facility] (Internal[facility] : [address] 11/30/2017 CBC W/ Auto BLD High Wbc 13.7 5.0-10 Final N orth Diff 10*3/uL .0 [facility] 10*3/u Hospital L ab L (Internal) : [address] ? ? BLD ? Rbc 4.81 4.10-5 Final North 10*6/uL .30 [facility] 10*6/u Hospital L ab L (Internal) : [address] ? ? BLD ? Hgb 12.6 g/dL 12.0-1 Final North 6.0 Country g/dL Hospital L ab (Internal) : [address] ? ? BLD ? Hct 39.8 % 37.0-4 Final Hematite 7.0 % [facility] (Internal) : [address] ? ? BLD ? Mcv 82.7 fL 80.0-9 Final Hematite 6.0 fL [facility] (Internal) : [address] ? ? BLD ? Mch 26.2 pg 26.0-3 Final North 2.0 pg [facility] (Internal) : [address] ? ? BLD ? Mchc 31.7 g/dL 31.0-3 Final Hematite 5.0 Country g/dL Hospital L ab (Internal) : [address] t ? ? BLD High Rdw 16.0 % 11.5-1 Final Hematite 4.5 % [facility] (Internal) : [address] ? ? BLD ? Plt 284 10*3/uL 130-45 Final North 0 [facility] 10*3/u Hospital L ab L (Internal) : [address] ? ? BLD ? Anc 9.46 ? Final North 10*3/uL [facility] (Internal) : [address] ? ? BLD ? Neutro 69.3 % 40.0-7 Final Hematite 5.0 % [facility] (Internal) : [address] ? ? BLD ? Lymph 25.8 % 20.0-5 Final North 0.0 % [facility] (Internal) : [address] [place] ? ? BLD ? Cedar 3.6 % 2.0-10 Final North .0 % [facility] (Internal) : [address] [place] ? ? BLD Low Eos 0.7 % 1.0-6. Final North 0 % [facility] (Internal) : [address] ? ? BLD ? Baso 0.2 % 0.0-1. Final North 0 % [facility] (Internal) : [address] ? ? BLD ? Ig 0.4 % 0.0-0. Final North 9 % [facility] (Internal) : [address] t 06/29/2017 Culture, Urine UR ? Final microbiolog ? Final North y results [facility] (Internal) : [address] 06/29/2017 Urinalysis, UR ? UA-WBC 0-3 [hpf] 0-3 Daniela [facility] Microscopic [hpf] [facility] (Internal) : [address] t ? ? UR ? UA-RBC 0-2 [hpf] 0-2 Final Hematite [hpf] [facility] (Internal) : [address] ? ? UR ABNORMA UA-bacteri moderate none Final No rth L a [hpf] seen Country [hpf] [facility] (Internal) : [address] ? ? UR ABNORMA UA-epithel moderate none Final No rth L ial [hpf] seen Country [hpf] [facility] (Internal) : [address] ? ? UR ABNORMA UA-mucus few [hpf] none Final Nor th L seen [facility] [hpf] [facility] (Internal) : [address] ? ? UR ? Amorph few [hpf] ? Final North [place] [facility] (Internal) : [address] t 06/29/2017 Urinalysis, UR ? UA-color yellow pale Final Hematite Dipstick, yellow [facility] (Internal) : [address] ? ? UR ABNORMA UA-appear hazy clear Final [facility] L ab (Internal) : [address] t ? ? UR ? UA-spec 1.020 1.003- Final Hematite Grav 1.035 [facility] L ab (Internal) : [address] t ? ? UR ? UA-pH 7.0 [pH] 4.6-8. Final Hematite 0 [pH] [facility] ab (Internal) : [address] t ? ? UR ? UA-leuk negative negati Final [facility] ab (Internal) : [address] t ? ? UR ? UA-nitrite negative negati Final [facility] ab (Internal) : [address] t ? ? UR ? UA-prot negative negati Final [facility] ab (Internal) : [address] t ? ? UR ? UA-gluc negative negati Final [facility] ab (Internal) : [address] t ? ? UR ? UA-ketone negative negati Final [facility] ab (Internal) : [address] t ? ? UR ? UA-urobil normal normal Final [facility] ab (Internal) : [address] t ? ? UR ? UA-bili negative negati [facility] ab (Internal) : [address] t ? ? UR ? UA-blood negative negati [facility] ab (Internal) : [address] 05/30/2017 Streptococcus THRT ? Final microbiolog ? F inal [facility] a Ag y results Cou ntry [facility] ab (Internal) : [address] 02/26/2017 Venipuncture BLD ? Venpn* ? ? Final [facility] ab (Internal) : [address] 02/26/2017 Culture, Urine UR ? Final microbiolog ? Final Hematite y [facility] Hospital ab (Internal) : [address] 02/26/2017 Cytomegalovirus S ? Cmv Igg positive ? Final Hematite (Cmv) Igg Ab, Cou ntry Quantitative, Hos pital Lab Serum (Internal) : [address] 02/26/2017 Cytomegalovirus S ? Cytomegalo positive nega ti Final Hematite (Cmv) Igm Ab, virus Ab, ve Country Serum IgM, S Hospital L ab (Internal) : [address] 02/26/2017 Parvovirus B19 S High Parvovirus 6.68 index <0. 90 Final Hematite Igg+igm Ab, B19 Ab, index Coun try Serum IgG, S Hospital L ab (Internal) : [address] ? ? S ? Parvovirus 0.20 index <0.90 Final N orth B19 Ab, index Country IgM, S Hospital L ab (Internal) : [address] [place] ? ? S ? Interpreta results ? Final Nort h tion suggest Country past Hospital L ab infection. (Inter nal): [address] 02/26/2017 Toxoplasma S ? Toxoplasma negative negati [facility] Igg+igm Ab, Ab, IgM, S ve C ountry Serum Hospital L ab (Internal) : [address] ? ? S ? Toxoplasma negative negati Final Nor th Ab, IgG, S ve Countr y Hospital L ab (Internal) : [address], [place] ? ? S ? Toxoplasma <3 IU/mL ? Final Nor th IgG Value [facility] (Internal) : [address] 02/26/2017 Hsv (1+2) Igg S ? Hsv Type 1 negative negati Final Hematite Ab, Serum Ab, IgG, S ve Cou ntry Hospital L ab (Internal) : [address] ? ? S ? Hsv Type 2 negative negati Final Nor th Ab, IgG, S ve Countr y Hospital L ab (Internal) : [address] 02/26/2017 HIV (1+2) Ab S ? HIV 1/2 negative negat [facility] Screen, Serum Antibody C ountry Hospital L ab (Internal) : [address] 02/26/2017 HBsAg S ? Hep B negative negat Final Nort h (Hepatitis B Surface Ag Country Surface Ag), Hosp ital Lab Serum (Internal) : [address] 02/26/2017 CT RNA, Qual, MISC ? Specimen urine ? Duglas Potter PCR, Description Count ry Unspecified Hospi moody Lab Specimen (Interna l): [address] [place] t ? ? MISC ? Result ? ? Final [facility] L ab (Internal) : [address], [place] 02/26/2017 Rubella Ab, BLD ? Obs Rbla positive positi Fin [facility] L ab (Internal) : [address] 02/26/2017 RPR (Rapid BLD ? Obs RPR non-reactiv non-re Fi [facility] Plasma Reagin), e active C [facility] L ab (Internal) : [address] 02/26/2017 Type + Screen, BLD ? Abo A ? Final [facility] L ab (Internal) : [address] t ? ? BLD ? Rh positive ? Final [facility] L ab (Internal) : [address] t ? ? BLD ? Ab Scrn negative negati Final [facility] L ab (Internal) : [address] 02/26/2017 Cbc BLD High Wbc 12.5 5.0-10 Final Hematite 10*3/uL .0 [facility] 10*3/u Hospital L ab L (Internal) : [address] ? ? BLD Low Rbc 3.97 4.10-5 [facility] 10*6/uL .30 Country 10*6/u Hospital L ab L (Internal) : [address] t ? ? BLD Low Hgb 11.3 g/dL 12.0-1 Final Hematite 6.0 Country g/dL Hospital L ab (Internal) : [address] t ? ? BLD Low Hct 33.9 % 37.0-4 Final Hematite 7.0 % [facility] Hospital L ab (Internal) : [address] t ? ? BLD ? Mcv 85.4 fL 80.0-9 Final Hematite 6.0 fL [facility] L ab (Internal) : [address] ? ? BLD ? Mch 28.5 pg 26.0-3 Final Hematite 2.0 pg [facility] Hospital L ab (Internal) : [address] t ? ? BLD ? Mchc 33.3 g/dL 31.0-3 Final Hematite 5.0 Country g/dL Hospital L ab (Internal) : [address] t ? ? BLD ? Plt 212 10*3/uL 130-45 Final Hematite 0 [facility] 10*3/u Hospital L ab L (Internal) : [address] t ? ? BLD High Rdw 15.6 % 11.5-1 Final Hematite 4.5 % [facility] Hospital L ab (Internal) : [address] 02/26/2017 Urinalysis, UR ? UA-color yellow pale Final [facility] yellow [facility] Hospital L ab (Internal) : [address] t ? ? UR ABNORMA UA-appear hazy clear Final [facility] Hospital L ab (Internal) : [address] t ? ? UR ? UA-spec 1.020 1.003- Final Hematite Grav 1.035 [facility] Hospital L ab (Internal) : [address] t ? ? UR ? UA-pH 7.0 [pH] 4.6-8. Final [place] [address] [pH] [facility] Hospital L ab (Internal) : [address] t ? ? UR ABNORMA UA-leuk trace negati Final [facility] Hospital L ab (Internal) : [address] t ? ? UR ? UA-nitrite negative negati Final [facility] L ab (Internal) : [address] t ? ? UR ? UA-prot negative negati Final [facility] L ab (Internal) : [address] t ? ? UR ? UA-gluc negative negati Final [facility] Hospital L ab (Internal) : [address] t ? ? UR ? UA-ketone negative negati Final [facility] Hospital L ab (Internal) : [address] t ? ? UR ? UA-urobil normal normal Final [facility] L ab (Internal) : [address] t ? ? UR ? UA-bili negative negati Final [facility] ab (Internal) : [address] t ? ? UR ? UA-blood negative negati Final [facility] L ab (Internal) : [address] ? ? UR ? UA-WBC 0-3 [hpf] 0-3 Final North [hpf] [facility] Hospital ab (Internal) : [address] ? ? UR ? UA-RBC 0-2 [hpf] 0-2 Final North [hpf] [facility] Hospital ab (Internal) : [address] ? ? UR ABNORMA UA-bacteri many [hpf] none Final North L a seen Country [hpf] [facility] (Internal) : [address] [place] ? ? UR ABNORMA UA-epithel many [hpf] none Final North L ial seen Country [hpf] [facility] (Internal) : [address] [place] ? ? UR ABNORMA UA-mucus rare [hpf] none Final No rth L seen Country [hpf] [facility] (Internal) : [address] [place] ? ? UR ? Clue Cells few [hpf] ? Final No rth [facility] (Internal) : [address] [place] 01/22/2017 Culture, Urine UR ? Final microbiolog ? Final North y results [facility] (Internal) : [address] 01/22/2017 Urinalysis, UR ? UA-WBC 0-3 [hpf] 0-3 Daniela l Hematite Microscopic [hpf] [facility] (Internal) : [address] [place] ? ? UR ? UA-RBC 0-2 [hpf] 0-2 Final North [hpf] [facility] (Internal) : [address] [place] ? ? UR ABNORMA UA-bacteri moderate none Final No rth L a [hpf] seen Country [hpf] [facility] (Internal) : [address] [place] ? ? UR ABNORMA UA-epithel moderate none Final No rth L ial [hpf] seen Country [hpf] [facility] (Internal) : [address] ? ? UR ABNORMA UA-mucus many [hpf] none Final No rth L seen Country [hpf] [facility] (Internal) : [address] t 01/22/2017 Urinalysis, UR ? UA-color yellow pale Final Hematite Dipstick, yellow [facility] Lab (Internal) : [address] t ? ? UR ? UA-appear clear clear Final [facility] [facility] L ab (Internal) : [address] t ? ? UR ? UA-spec 1.020 1.003- Final Hematite Grav 1.035 [facility] L ab (Internal) : [address] t ? ? UR ? UA-pH 6.0 [pH] 4.6-8. Final Hematite 0 [pH] [facility] L ab (Internal) : [address] t ? ? UR ? UA-leuk negative negati Final [facility] L ab (Internal) : [address] t ? ? UR ? UA-nitrite negative negati Final [facility] L ab (Internal) : [address] t ? ? UR ABNORMA UA-prot trace negati [facility] L ab (Internal) : [address] t ? ? UR ? UA-gluc negative negati Final [facility] L ab (Internal) : [address] t ? ? UR ? UA-ketone negative negati Final [facility] L ab (Internal) : [address] t ? ? UR ? UA-urobil normal normal Final [facility] L ab (Internal) : [address] t ? ? UR ? UA-bili negative negati [facility] L ab (Internal) : [address] t ? ? UR ? UA-blood negative negati [facility] L ab (Internal) : [address] 01/22/2017 Lipase, Serum S ? Lip 36 U/L 23-300 Final Hematite or Plasma U/L [facility] L ab (Internal) : [address] 01/22/2017 CMP, Serum or S High g/r 118 mg/dL 74-106 Fin al Hematite Plasma mg/dL [facility] L ab (Internal) : [address] ? ? S ? Bun 11 mg/dL 7-17 Final Hematite mg/dL [facility] L ab (Internal) : [address] ? ? S Low Crea 0.50 mg/dL 0.52-1 Final [facility] .04 [facility] mg/dL [facility] L ab (Internal) : [address] t ? ? S ? Ca 8.8 mg/dL 8.4-10 Final [facility] .2 [facility] mg/dL Hospital L ab (Internal) : [address] t ? ? S Low Na 136 mmol/L 137-14 Final [facility] 5 [facility] mmol/L Hospital L ab (Internal) : [address] t ? ? S Low K 3.3 mmol/L 3.5-5. Final [facility] 1 [facility] mmol/L Hospital L ab (Internal) : [address] t ? ? S ? Cl 103 mmol/L 98-107 Final Hematite mmol/L [facility] ([facility] : [address] t ? ? S ? Tco2 22.0 mmol/L 22.0-3 Final [facility] 0.0 [facility] mmol/L Hospital L ab (Internal) : [address] t ? ? S ? Tp 6.9 g/dL 6.3-8. Final [facility] 2 g/dL [facility] ([facility]) : [address] t ? ? S ? Alb 4.0 g/dL 3.5-5. Final [facility] 0 g/dL [facility] (Internal) : [address] t ? ? S ? Tbil 0.5 mg/dL 0.2-1. Final [facility] 3 [facility] mg/dL Hospital L ab (Internal) : [address] t ? ? S ? Alp 64 U/L 50-136 Final [facility] U/L [facility] (Internal) : [address] t ? ? S ? Alt (Sgpt) 30 U/L 9-52 Final [facility] U/L [facility] (Internal) : [address] t ? ? S ? Ast (Sgot) 22 U/L 14-36 Final [facility] U/L [facility] ([facility] : [address] t 01/22/2017 CBC W/ Auto BLD ? Wbc 5.7 10*3/uL 5.0-10 Fin al [facility] Diff .0 [facility] 10*3/u Hospital L ab L (Internal) : [address] ? ? BLD Low Rbc 4.07 4.10-5 Final [facility] 10*6/uL .30 [facility] 10*6/u Hospital L ab L (Internal) : [address] ? ? BLD Low Hgb 11.6 g/dL 12.0-1 Final [facility] 6.0 [facility] g/dL Hospital L ab (Internal) : [address] ? ? BLD Low Hct 33.8 % 37.0-4 Final [facility] 7.0 % [facility] (Internal) : [address] ? ? BLD ? Mcv 83.0 fL 80.0-9 Final [facility] 6.0 fL [facility] (Internal) : [address] ? ? BLD ? Mch 28.5 pg 26.0-3 Final [facility] 2.0 pg [facility] L [facility] (Internal) : [address] ? ? BLD ? Mchc 34.3 g/dL 31.0-3 Final [facility] 5.0 [facility] g/dL Hospital L ab (Internal) : [address] ? ? BLD ? Rdw 13.9 % 11.5-1 Final [facility] 4.5 % [facility] (Internal) : [address] ? ? BLD ? Plt 159 10*3/uL 130-45 Final [facility] 0 [facility] 10*3/u Hospital L ab L (Internal) : [address] Vick[address] t ? ? BLD ? Anc 4.48 ? Final [facility] 10*3/uL [facility] (Internal) : [address] Vick[address] t ? ? BLD High Neutro 78.8 % 40.0-7 Final [facility] 5.0 % [facility] (Internal) : [address] ? ? BLD Low Lymph 14.6 % 20.0-5 Final [facility] 0.0 % [facility] (Internal) : [address] ? ? BLD ? Cedar 6.0 % 2.0-10 Final [facility] .0 % [facility] (Internal) : [address] ? ? BLD Low Eos 0.2 % 1.0-6. Final [facility] 0 % [facility] (Internal) : [address] ? ? BLD ? Baso 0.2 % 0.0-1. Final Hematite 0 % [facility] L ab (Internal) : [address], Vickie gonzalez ? ? BLD ? Ig 0.2 % 0.0-0. Final Hematite 9 % [facility] L ab (Internal) : [address] 01/06/2017 Venipuncture BLD ? Venpn* ? ? Final [facility] L ab (Internal) : [address] 01/06/2017 beta-HCG, S High HCG, Quant 1665.6 2.0-6. Final Hematite Quantitative, [IU]/mL 0 Co untry Serum or Plasma [IU]/m H [facility]spital Lab L (Internal) : [address] Past Encounters 03/21/2021 Neck Pain; Antalgic Posture; Muscle Weak ness Kimberly Larry, PT: [address] [place] [address], [address], [place] [address], Ph. 06/04/2020 Jinny Hinojosa MD: [address] [place] [phone], Ph. 03/29/2020 Pre-surgery Evaluation Jinny Hinojosa MD: [address] [place] [phone], Ph. 03/11/2020 Chronic Pelvic Pain of Female Jinny Hinojosa MD: [address] [place] [phone], Ph. 01/08/2020 Pre-surgery Evaluation Jinny Hinojosa MD: [address] [place] [phone], Ph. 12/27/2019 Chronic Pelvic Pain of Female Jinny Hinojosa MD: [address] [place] [phone], Ph. 12/12/2019 Abnormal Cervical Papanicolaou Smear Jinny Hinojosa MD: [address] [place] [address], Ph. 11/22/2019 Chronic Pelvic Pain of Female Jinny Hinojosa MD: [address] [place] [address], Ph. Social History Tobacco Smoking Status Heavy Tobacco Smoker (1 PPD) Vaccine List Vaccine Type COVID-19, mRNA, LNP-S, PF, 100 mcg/0.5 m L dose 03/28/2021 04/30/2021?0.5 mL DTaP 06/25/2009 DTaP-Hep B-IPV 05/20/1995 [id number] 08/24/1996 11/14/1996 04/29/1998 08/12/2000 Hep A, ped/adol, 2 dose 05/20/1995 Hep B, adolescent or pediatric 06/21/1995 11/21/1996 Hib (HbOC) 05/20/1995 influenza, seasonal, injectable 09/15/2011?0.5 mL influenza, seasonal, injectable, preserv ative free 08/30/2012?0.5 mL 09/05/2013?0.5 mL meningococcal MCV4O 06/25/2016?0.5 mL MMR 08/24/1996 08/12/2000 Tdap 06/25/2009 varicella 06/08/2001 Plan of Care Reminders Provider Appointments None ? ? recorded. Lab None ? ? recorded. Referral None ? ? recorded. Procedures None ? ? recorded. Surgeries None ? ? recorded. Imaging None ? ? recorded. Vitals 03/29/2020 01:00PM Preop Clearance 20 Height Weight BMI Blood Pressure 158.09 cm 68.49 kg 27.4 kg/m2 100/60 mm[Hg] 01/08/2020 11:00AM Preop Clearance 20 Height Weight BMI Blood Pressure 158.09 cm 68.04 kg 27.2 kg/m2 100/60 mm[Hg] 12/12/2019 09:50AM Procedure 30 Height Blood Pressure 158.09 cm 112/60 mm[Hg] 11/22/2019 11:00AM New Patient 30 Height Weight BMI Blood Pressure 158.09 cm 65.54 kg 26.2 kg/m2 110/60 mm[Hg] 06/01/2017 Height Weight Blood Pressure 163.19 cm 70.31 kg 110/62 mm[Hg] 06/22/2016 Height Weight Blood Pressure 163.19 cm 60.78 kg 118/82 mm[Hg] 03/24/2016 Weight Blood Pressure 60.78 kg 110/70 mm[Hg] 02/14/2016 Height Weight Blood Pressure 158.75 cm 62.37 kg 110/80 mm[Hg] 12/02/2015 Height Weight 161.29 cm 70.31 kg 08/26/2015 Height Weight Blood Pressure 161.29 cm 65.32 kg 116/68 mm[Hg] 08/01/2015 Weight Blood Pressure 65.77 kg 122/72 mm[Hg] 07/10/2015 Height Weight Blood Pressure 161.29 cm 61.92 kg 124/64 mm[Hg] 06/05/2015 Blood Pressure 120/58 mm[Hg] 05/31/2015 Height Weight Blood Pressure 161.29 cm 63.5 kg 120/46 mm[Hg] 05/01/2015 Height Weight Blood Pressure 161.29 cm 63.5 kg 110/72 mm[Hg] 04/23/2015 Height Weight Blood Pressure 161.29 cm 63.5 kg 118/72 mm[Hg] 04/03/2015 Height Weight Blood Pressure 161.29 cm 63.5 kg 118/64 mm[Hg] 02/28/2015 Height Weight Blood Pressure 161.29 cm 66.5 kg 112/70 mm[Hg] 01/18/2015 Blood Pressure 112/64 mm[Hg] 12/25/2014 Blood Pressure 108/60 mm[Hg] 07/27/2014 Blood Pressure 114/60 mm[Hg] 07/26/2014 Weight Blood Pressure 64.86 kg 120/50 mm[Hg] 05/30/2014 Blood Pressure 112/60 mm[Hg] 03/27/2014 Height Weight Blood Pressure 161.29 cm 62.6 kg 132/64 mm[Hg] 03/21/2014 Blood Pressure 112/70 mm[Hg] 02/20/2014 Blood Pressure 120/76 mm[Hg] 02/02/2014 Height Weight Blood Pressure 161.29 cm 59.87 kg 122/86 mm[Hg] 12/05/2013 Blood Pressure 112/70 mm[Hg] 11/16/2013 Height Weight Blood Pressure 161.29 cm 59.87 kg 122/66 mm[Hg] 10/13/2013 Height Weight Blood Pressure 161.29 cm 58.97 kg 120/70 mm[Hg] 10/11/2013 Blood Pressure 110/62 mm[Hg] 09/22/2013 Height Weight Blood Pressure 161.29 cm 60.15 kg 110/62 mm[Hg] 09/06/2013 Height Weight Blood Pressure 161.29 cm 58.01 kg 94/56 mm[Hg] 09/05/2013 Blood Pressure 128/76 mm[Hg] 08/28/2013 Height Weight Blood Pressure 158.75 cm 59.51 kg 112/70 mm[Hg] 07/27/2013 Blood Pressure 118/78 mm[Hg] 07/17/2013 Height Weight Blood Pressure 158.75 cm 59.51 kg 98/62 mm[Hg] 07/12/2013 Blood Pressure 134/70 mm[Hg] 06/20/2013 Height Weight Blood Pressure 158.75 cm 59.51 kg 112/72 mm[Hg] 03/07/2013 Height Weight Blood Pressure 158.75 cm 59.87 kg 116/66 mm[Hg] 02/01/2013 Blood Pressure 112/56 mm[Hg] 01/11/2013 Blood Pressure 108/64 mm[Hg] 12/22/2012 Blood Pressure 124/76 mm[Hg] 12/09/2012 Height Weight Blood Pressure 158.75 cm 64.32 kg 122/80 mm[Hg] 09/22/2012 Height Weight Blood Pressure 158.75 cm 64.32 kg 116/74 mm[Hg] 09/20/2012 Height Weight Blood Pressure 158.75 cm 64.32 kg 102/64 mm[Hg] 09/08/2012 Height Weight Blood Pressure 158.75 cm 64.32 kg 130/74 mm[Hg] 09/02/2012 Height Weight Blood Pressure 158.75 cm 64.32 kg 96/50 mm[Hg] 08/30/2012 Height Weight Blood Pressure 158.75 cm 63.96 kg 116/78 mm[Hg] 08/23/2012 Height Weight Blood Pressure 158.75 cm 66 kg 110/62 mm[Hg] 08/08/2012 Height Weight Blood Pressure 158.75 cm 64.86 kg 100/66 mm[Hg] 08/05/2012 Blood Pressure 110/54 mm[Hg] 07/29/2012 Height Weight Blood Pressure 158.75 cm 64.86 kg 104/64 mm[Hg] 07/22/2012 Weight Blood Pressure 64.86 kg 126/78 mm[Hg] 07/15/2012 Height Weight Blood Pressure 158.75 cm 64.18 kg 120/60 mm[Hg] 07/05/2012 Weight Blood Pressure 64.41 kg 114/64 mm[Hg] 06/22/2012 Weight Blood Pressure 64.86 kg 114/66 mm[Hg] 04/20/2012 Height Weight Blood Pressure 158.75 cm 70.31 kg 116/80 mm[Hg]
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
[2021-05-02 12:11] VITALS: BP 112/68; PULSE 70; RESP 14; TEMP 36.3; O2SAT 95
--- NOTE | 2021-05-02 12:19 | ED.GENADUL_ITS ---
Discharge Plan Disposition Patient Disposition: HOME Condition: Improving Discharge Details Clinical Impression: Cellulitis of left leg Primary Care Provider: Marin Rosenberg V ED Provider: Andrew Cash Home Meds and New Rx's Prescriptions: Continued naproxen 500 mg tablet 500 mg PO BID PRN (Reason: pain) Qty: 30 RF: 3 sumatriptan succinate [Imitrex] 50 mg tablet See Rx Instructions PO .COMPLEX Qty: 10 RF: 2 citalopram 20 mg tablet 20 mg PO DAILY Qty: 60 RF: 6 alprazolam [Xanax] 0.5 mg tablet 0.5 mg PO DAILY PRN (Reason: anxiety) Qty: 30 RF: 0 Lupron Depot 3.75 mg syringe kit 3.75 mg IM QMONTH Qty: 1 RF: 5 clindamycin HCl 300 mg capsule 300 mg PO QID RF: 0 ciprofloxacin HCl 500 mg tablet 500 mg PO BID RF: 0 ciprofloxacin HCl [Cipro] 500 mg tablet 500 mg PO BID Qty: 14 RF: 0 Discharge Instructions Instructions: Cellulitis (ED) Additional Instructions: Home to rest today. Continue the previously prescribed antibiotics.. Continue to elevate the leg above the level of the heart to reduce swelling. Return to emergency room for any acute concerns. Medical Decision Making 25-year-old female who was seen in emergency room yesterday for left leg cellulitis for which she is taking dual therapy antibiotics. She was referred for outpatient ultrasound which did not reveal evidence of DVT. She feels the lesion is improving and the area of erythema is receding. The clinical exam is reassuring, she will continue outpatient oral antibiotics. She is stable and appropriate discharge to home. [facility] General Mode of arrival: ambulatory . Date/Time Provider Initiated Documentation: 05/02/21 12:06 . Limitations to Documentation: no limitations . Information obtained by: patient . History of Present Illness 25 year old F presents to the emergency department with the chief complaint of Healing left l eg cellulitis, here for ultrasound results, feels improved, Quality is described as dull and constant, and is localized to the left and lower extremity. Patient reports no radiation. Patient started experiencing this day(s) and it has been constant. No relieving factors improve symptom(s), No exacerbating factors reported . Patient did receive the following treatments prior to arrival, none Related Data Home Medications Medication Instructions Recorded Confirmed naproxen 500 mg tablet 500 mg PO BID PRN #30 tab 06/24/20 12/31/20 alprazolam 0.5 mg tablet 0.5 mg PO DAILY PRN #30 tab 07/25/20 12/31/20 citalopram 20 mg tablet 20 mg PO DAILY #60 tab 07/25/20 05/01/21 sumatriptan succinate 50 mg tablet See Rx Instructions PO .COMPLEX 08/06/20 12/31/20 #10 tab leuprolide 3.75 mg intramuscular 3.75 mg IM QMONTH #1 ea 01/28/21 01/28/21 syringe kit ciprofloxacin HCl [Cipro] 500 mg PO BID #14 tab 04/30/21 ciprofloxacin HCl 500 mg PO BID 05/01/21 05/01/21 clindamycin HCl 300 mg PO QID 05/01/21 05/01/21 Previous Rx's Medication Instructions Recorded naproxen 500 mg tablet 500 mg PO BID PRN #30 tab 06/24/20 alprazolam 0.5 mg tablet 0.5 mg PO DAILY PRN #30 tab 07/25/20 citalopram 20 mg tablet 20 mg PO DAILY #60 tab 07/25/20 sumatriptan succinate 50 mg tablet See Rx Instructions PO .COMPLEX 08/06/20 #10 tab leuprolide 3.75 mg intramuscular 3.75 mg IM QMONTH #1 ea 01/28/21 syringe kit ciprofloxacin HCl [Cipro] 500 mg PO BID #14 tab 04/30/21 Allergies Allergy/AdvReac Type Severity Reaction Status Date / Time adhesive Allergy Severe itchy and Verified 05/02/21 12:15 blisters amoxicillin Allergy Severe Hives Verified 05/02/21 12:15 ethinyl estradiol Allergy Severe hives, Verified 05/02/21 12:15 [From Aviane] tachycardia levonorgestrel [From Aviane] Allergy Severe hives, Verified 05/02/21 12:15 tachycardia Penicillins Allergy Severe hives Verified 05/02/21 12:15 citalopram Allergy Other (See Unverified 05/02/21 12:15 Comment) acetaminophen [From Vicodin] AdvReac Severe get very Verified 05/02/21 12:15 mad and blacks out. hydrocodone [From Vicodin] AdvReac Severe get very Verified 05/02/21 12:15 mad and blacks out. hydromorphone [From Dilaudid] AdvReac Severe migrain Verified 05/02/21 12:15 headache, hot flashes naproxen AdvReac Severe abdominal Verified 05/02/21 12:15 pain sertraline [From Zoloft] AdvReac Severe hallucinati Verified 05/02/21 12:15 ons Sulfa (Sulfonamide AdvReac Severe nose Verified 05/02/21 12:15 Antibiotics) bleeds, vomiting General Stated Complaint: Recheck MARCOS: 5 Review of Systems Narrative: 4 systems reviewed and otherwise negative. [facility] Medical History Chronic pelvic pain in female Onset with menarche. Not responsive to OCPs. 07/2020. Depo-Lupron 7.5 mg #1 dose. Endometriosis Sterilization BTL at time of final . Surgical History H/O laparoscopy For chronic pelvic pain. Laparoscopic fulguration of endometriosis implants. History of delivery X3. 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 Pleasant, well groomed, interactive. EXT: Full ROM, left medial calf with receding area of erythema surrounding 2 areas of central discrete ulceration, soft, no induration, no warmth Neuro: Grossly normal neurologic exam, conversant, interactive. Psych: Speech fluent, thoughts congruent, affect normal Course Vital Signs Vital signs: Vital Signs Temperature 36.3 C L 05/02/21 12:11 Pulse 70 05/02/21 12:11 Respiratory Rate 14 05/02/21 12:11 Blood Pressure 112/68 05/02/21 12:11 Pulse Oximetry 95 05/02/21 12:11 Temperature 36.3 C L 05/02/21 12:11 Temperature Source Skin 05/02/21 12:11 Pulse 70 05/02/21 12:11 Respiratory Rate 14 05/02/21 12:11 Respiratory Effort Non-Labored 05/02/21 12:17 Blood Pressure 112/68 05/02/21 12:11 Blood Pressure Position Supine 05/02/21 12:11 Pulse Oximetry 95 05/02/21 12:11 Oxygen Delivery Method Room Air 05/02/21 12:11 Oxygen Flow Rate 0 05/02/21 12:11 Pain Level 4 05/02/21 12:11
== END 2021-05-02 12:25 | disposition home or self-care (01) ==
PROVIDERS: Emergency Provider Emergency Medicine; PCP Physician Assistant Medical
DX: L03.116 Cellulitis of left lower limb (principal)

== ENCOUNTER 2021-05-20 17:16 | Emergency (ER) | payer MEDICAID, SELFPAY ==
[2021-05-20 17:22] VITALS: BP 120/69; PULSE 71; RESP 14; TEMP 36.8; O2SAT 99
--- NOTE | 2021-05-20 18:31 | W.ED.GENAD ---
Discharge Plan Disposition Patient Disposition: HOME Condition: Good Discharge Details Clinical Impression: Acute leg pain Primary Care Provider: Marin Rosenberg V ED Provider: Bethany Stevens Home Meds and New Rx's Prescriptions: Continued citalopram 20 mg tablet 20 mg PO DAILY Qty: 60 RF: 6 ciprofloxacin HCl [Cipro] 500 mg tablet 500 mg PO BID Qty: 14 RF: 0 Discharge Instructions Instructions: Leg Pain (ED) Additional Instructions: Your exam and labs are reassuring. You have minimal elevation of one of your inflammatory markers as we discussed. Please encourage rest, ice, elevation. Tylenol and/or ibuprofen as needed for discomfort. Please continue with Edi wrap to help support the leg as well as keep from picking at the bug bite. If you develop any new or worsening symptoms please seek care urgently once again. Otherwise, please follow-up with primary care in the next 1 to 2 weeks for reevaluation Referrals: Marin Rosenberg V [Primary Care Provider] - Discharge Data Discharge Date/Time-TO BE ENTERED AT DEPARTURE: 05/20/21 20:50 Medical Decision Making Patient is a pleasant 25 year female presenting today with c/c of LLE pain. Pain has been intermittent over the past month. Has been seen at outside facility as well. She was initially on a number of antibiotics for what appeared to be cellulitis around a bug bite and new tattoo. She states that sinice initial treatment symptoms have waxed/waned. 2-3 weeks ago she had a DVT study which was negative. She reports that while she does not have any recurrence of the erythema, the discomfort has began to increase again of her recent days. States that this is worse when she is at work. She denies any fevers or chills. No numbness or tingling. No recent trauma. On exam, patient appears nontoxic. Her vital signs are stable. The area of initial bug bite is still visible. There is a small scab over this. No surrounding erythema, warmth, drainage. No swelling. No palpable cord. Negative Homans' sign. 2+ distal pulses. As the patient has had this continues waxing and waning discomfort for some time now, I am concerned for other etiology and due to the laboratory evaluation is appropriate. Will include tick and Lyme panel, for electrolyte abnormalities. As the patient has been rehabilitating the leg, also considered DVT and will screen with a D-dimer. Discussed this plan with the patient is in agreement. No leukocytosis. Stable H&H. ESR 17. CRP slightly elevated at 1.53. D-dimer is within normal limits. No electrolyte abnormalities. Tick and Lyme panel is pending. At this time, I see no evidence to suggest an acute infection. She has mildly elevated inflammatory marker but otherwise, her exam and laboratory evaluation completed thus far is fairly unremarkable. I am concerned that the patient may be picking at the bug bite. We will wrapped with an Edi support to help with discomfort as well as protect this area from any further trauma. Advise follow-up with primary care. As patient does seem to have difficulty making this appointment, I have asked her care management team to assist with this. Return precautions were discussed. All of her questions and concerns were addressed and she is in agreement with this plan. HPI General Mode of arrival: ambulatory. Date/Time Provider Initiated Documentation: 05/20/21 18:31. Limitations to Documentation: no limitations. Information obtained by: patient, RN notes reviewed and old records reviewed. History of Present Illness 25 year old F presents to the emergency department with the chief complaint of LLE pain, described as moderate, with intensity rated at 6. Quality is described as aching, and is localized to the left and lower extremity. Patient reports no radiation. Patient started experiencing this month(s) and it has been intermittent. No relieving factors improve symptom(s), No exacerbating factors reported . Patient notes no other symptoms.; denies chest pain, cough, fever/chills, rash and shortness of breath. Patient did receive the following treatments prior to arrival, none Related Data Home Medications Medication Instructions Recorded Confirmed citalopram 20 mg tablet 20 mg PO DAILY #60 tab 07/25/20 05/20/21 ciprofloxacin HCl [Cipro] 500 mg PO BID #14 tab 04/30/21 05/20/21 Previous Rx's Medication Instructions Recorded citalopram 20 mg tablet 20 mg PO DAILY #60 tab 07/25/20 ciprofloxacin HCl [Cipro] 500 mg PO BID #14 tab 04/30/21 Allergies Allergy/AdvReac Type Severity Reaction Status Date / Time adhesive Allergy Severe itchy and Verified 05/20/21 17:31 blisters amoxicillin Allergy Severe Hives Verified 05/20/21 17:31 ethinyl estradiol Allergy Severe hives, Verified 05/20/21 17:31 [From Aviane] tachycardia levonorgestrel [From Aviane] Allergy Severe hives, Verified 05/20/21 17:31 tachycardia Penicillins Allergy Severe hives Verified 05/20/21 17:31 citalopram Allergy Other (See Unverified 05/20/21 17:31 Comment) acetaminophen [From Vicodin] AdvReac Severe get very Verified 05/20/21 17:31 mad and blacks out. hydrocodone [From Vicodin] AdvReac Severe get very Verified 05/20/21 17:31 mad and blacks out. hydromorphone [From Dilaudid] AdvReac Severe migrain Verified 05/20/21 17:31 headache, hot flashes naproxen AdvReac Severe abdominal Verified 05/20/21 17:31 pain sertraline [From Zoloft] AdvReac Severe hallucinati Verified 05/20/21 17:31 ons Sulfa (Sulfonamide AdvReac Severe nose Verified 05/20/21 17:31 Antibiotics) bleeds, vomiting General Stated Complaint: GenMedical MARCOS: 3 Review of Systems Constitutional Constitutional: Reports as per HPI, Denies chills and Denies fever(s) Cardiovascular Cardiovascular: Reports as per HPI Respiratory Respiratory: Reports as per HPI Musculoskeletal Musculoskeletal: Reports as per HPI Integumentary/Breasts Skin/Breast: Reports as per HPI Neurologic Neurologic: Reports as per HPI, Denies sensory deficit and Denies paresthesias [facility] Medical History Chronic pelvic pain in female Onset with menarche. Not responsive to OCPs. 07/2020. Depo-Lupron 7.5 mg #1 dose. Endometriosis Sterilization BTL at time of final . Surgical History H/O laparoscopy For chronic pelvic pain. Laparoscopic fulguration of endometriosis implants. History of delivery X3. 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 Sexually active: Yes Do you feel safe at home: Yes Do you feel safe in your relationship?: Yes Female Reproductive History Menstrual control method: permanent sterilization History History 3 Para 3 Hx # Term Pregnancies 3 Multiple births Hx # Pregnancies Ectopic pregnancies AB induced Hx Number of Living Children 3 AB spontaneous Exam Const General: cooperative, healthy appearing, comfortable, no acute distress and well developed Nutritional Appearance: average body habitus and well nourished Orientation: alert and awake Resp Effort & Inspection: normal respiratory effort, able to speak in complete sentences and no respiratory distress Cardio Rate: regular rate Rhythm: regular rhythm Neuro General: patient alert and patient awake Cognition: normal cognition Speech: speech normal Gait: normal gait Sensory Exam: no sensory deficits noted Extrem Ankle/foot/toe images: 1. Area of discomfort as indicated by patient. Along inferior aspect there is a small scab, consistent with where paitent states she suffered initial bug bite. No surrounding erythema, warmth, drainage. No swelling. No area of fluctuance. This pain tracts behind the knee. She has full ROM. No palpable cord. 2+ distal pulses. Sensation intact. Full ROM of ankle. Psych Appearance: grossly normal and well kempt Mental Status: mental status grossly normal Speech and Movement: speech and movement normal Course Vital Signs Vital signs: Vital Signs Temperature 36.8 C 05/20/21 17:22 Pulse 71 05/20/21 17:22 Respiratory Rate 14 05/20/21 17:22 Blood Pressure 120/69 05/20/21 17:22 Pulse Oximetry 99 05/20/21 17:22 Temperature 36.8 C 05/20/21 17:22 Temperature Source Temporal Artery Scan 05/20/21 17:22 Pulse 71 05/20/21 17:22 Respiratory Rate 14 05/20/21 17:22 Blood Pressure 120/69 05/20/21 17:22 Pulse Oximetry 99 05/20/21 17:22 Oxygen Delivery Method Room Air 05/20/21 17:22 Oxygen Flow Rate 0 05/20/21 17:22 Pain Level 6 05/20/21 17:22
[2021-05-20 18:51] VITALS: BP 111/62; PULSE 63; RESP 17; TEMP 36.3; O2SAT 98
[2021-05-20 19:26] LABS: Abs Immature Grans 0.03 10^3/uL (0.0-0.06); Absolute Basophil Count 0.04 10^3/uL (0.0-0.2); Absolute Eosinophil Count 0.22 10^3/uL (0.0-0.7); Absolute Lymphocyte Count 2.68 10^3/uL (1.2-3.4); Absolute Monocyte Count 0.44 10^3/uL (0.1-0.8); Absolute Neutrophil Count 5.88 10^3/uL (1.2-6.7); Basophils % 0.4; Eosinophils % 2.4; HGB 13.6 g/dL (11.2-15.7); Immature Grans % 0.3; Lymphocytes % 28.8; MCH 28.7 pg (27.0-33.0); MCHC 32.4 % (32.0-36.0); MCV 88.6 fL (80-95); MPV 11.1 fL (8.0-11.0); Monocytes % 4.7; Neutrophils % 63.4; Nucleated RBC 0 %; Platelet Count 201 10^3/uL (130-400); RBC 4.74 10^6/uL (3.93-5.22); RDW 12.8 % (11.7-14.6); RDW-SD 41.7 fL; WBC 9.29 10^3/uL (4.4-10.8)
[2021-05-20 19:29] LABS: ESR 17 mm/hr (0-20)
[2021-05-20 19:45] LABS: ALT 23 U/L (14-59); AST 19 U/L (15-37); Albumin 3.9 g/dL (3.4-5.0); Alkaline Phosphatase 79 U/L (46-116); Anion Gap 9.2 mmol/L (3-11); BUN 14 mg/dL (7-18); Bilirubin, Total 0.2 mg/dL (0.2-1.0); C-Reactive Protein 1.53 mg/dL (0.0-0.3); CO2 25.8 mmol/L (21.0-32.0); CREATININE 0.6 mg/dL (0.55-1.02); Calcium 9.3 mg/dL (8.5-10.1); Chloride 105 mmol/L (98-107); Glucose 85 mg/dL (74-106); Sodium 140 mmol/L (136-145); Total Protein 7.4 g/dL (6.4-8.2)
[2021-05-20 19:59] LABS: D-Dimer 342 ng/mlFEU (<500)
--- NOTE | 2021-05-20 20:33 | NUR.NOTE ---
Nursing Note:referal sent to cm to melissa follow up appt 05/20/21
[2021-05-20 20:50] VITALS: BP 119/74; PULSE 75; RESP 17; TEMP 36.3; O2SAT 98
[2021-05-22 10:21] LABS: Lyme Ab w Rflx to Lyme Confirm Negative (Negative)
[2021-05-23 09:40] LABS: Anaplasma phagocytophilum Negative (Negative); B. miyamotoi PCR Negative (Negative); Babesia divergens/MO-1 Negative (Negative); Babesia duncani Negative (Negative); Babesia microti Negative (Negative); Ehrlichia chaffeensis Negative (Negative); Ehrlichia ewingii/canis Negative (Negative); Ehrlichia muris eauclairensis Negative (Negative)
--- NOTE | 2021-05-27 13:49 | CMPROGNOTE_ITS ---
- If Service Date Differs Date of service: 05/27/21 Time of Service: 13:50 Care Management Progress Note Karine is seen in the ED for leg pain. Her PCP is listed as Suraj Rosenberg PA-C, a provider at [facility] in [facility]. attempts to reach Karine by telephone to inquire is she wishes to return to [facility] for her follow-up but restrictions on the line make it impossible to reach Karine via telephone. An outreach letter is sent to the address on file, asking that she contact if she needs assistance scheduling the follow-up appointment.
== END 2021-05-20 20:50 | disposition home or self-care (01) ==
PROVIDERS: Emergency Provider Physician Assistant; PCP Physician Assistant Medical
DX: M79.662 Pain in left lower leg (principal)
CPT/HCPCS: 36415; 80053; 85652; 87798; 99283; 85025; 85379; 86140; 86618

== ENCOUNTER 2021-05-28 16:42 | Outpatient (REF) | payer MEDICAID, SELFPAY ==
[2021-05-30 13:56] LABS: COVID-19 RT-PCR UVMMC Result Negative (Negative)
== END 2021-05-28 16:43 | disposition home or self-care (01) ==
LOC: NCHCN 16:42
PROVIDERS: PCP Physician Assistant Medical; Visit Provider Nurse Practitioner Family
DX: J02.9 Acute pharyngitis, unspecified (principal); Z20.822 Contact with and (suspected) exposure to COVID-19
CPT/HCPCS: U0003

== ENCOUNTER 2021-07-21 17:17 | Outpatient (REF) | payer MEDICAID, SELFPAY ==
[2021-07-21 20:30] LABS: Abs Immature Grans 0.03 10^3/uL (0.0-0.06); Absolute Basophil Count 0.03 10^3/uL (0.0-0.2); Absolute Eosinophil Count 0.13 10^3/uL (0.0-0.7); Absolute Lymphocyte Count 2.36 10^3/uL (1.2-3.4); Absolute Monocyte Count 0.41 10^3/uL (0.1-0.8); Absolute Neutrophil Count 5.97 10^3/uL (1.2-6.7); Basophils % 0.3; Eosinophils % 1.5; HCT 42.5 % (36.0-46.0); HGB 13.9 g/dL (11.2-15.7); Immature Grans % 0.3; Lymphocytes % 26.4; MCH 27.8 pg (27.0-33.0); MCHC 32.7 % (32.0-36.0); MPV 12.5 fL (8.0-11.0); Monocytes % 4.6; Neutrophils % 66.9; Nucleated RBC 0 %; Platelet Count 202 10^3/uL (130-400); RDW 13.8 % (11.7-14.6); RDW-SD 43.1 fL; WBC 8.93 10^3/uL (4.4-10.8)
[2021-07-21 20:43] LABS: ALT 130 U/L (14-59); AST 123 U/L (15-37); Albumin 3.9 g/dL (3.4-5.0); Alkaline Phosphatase 89 U/L (46-116); Anion Gap 11.6 mmol/L (3-11); BUN 8 mg/dL (7-18); Bilirubin, Direct 0.2 mg/dL (0.0-0.2); Bilirubin, Total 0.3 mg/dL (0.2-1.0); CO2 24.4 mmol/L (21.0-32.0); CREATININE 0.6 mg/dL (0.55-1.02); Calcium 9.1 mg/dL (8.5-10.1); Chloride 107 mmol/L (98-107); Glucose 92 mg/dL (74-106); Potassium 3.7 mmol/L (3.5-5.1); Sodium 143 mmol/L (136-145); Total Protein 6.8 g/dL (6.4-8.2)
[2021-07-21 20:51] LABS: Bilirubin Small (Negative); Blood Trace-intact (Negative); Clarity Cloudy (Clear); Glucose Negative (Negative); Ketones 15 mg/dL (Negative); Leukocyte Esterase Negative (Negative); Nitrite Negative (Negative); Specific Gravity >= 1.030 (1.005-1.025)
[2021-07-21 21:03] LABS: Bacteria Negative HPF (Negative); C & S Indicated? No/Sq. Contamination; Casts Negative LPF (Negative); Crystals Many Amorphous HPF (Negative); Epithelial Cells Moderate HPF (Negative); Mucus Trace (Negative); RBC 0-2 HPF (0-2)
== END 2021-07-21 17:18 | disposition home or self-care (01) ==
LOC: NCHCN 17:17
PROVIDERS: PCP Physician Assistant Medical; Visit Provider Nurse Practitioner Family
DX: R74.8 Abnormal levels of other serum enzymes (principal); R19.7 Diarrhea, unspecified; R10.9 Unspecified abdominal pain
CPT/HCPCS: 80048; 80076; 81003; 81015; 85025

== ENCOUNTER 2021-07-24 08:51 | Outpatient (REF) | payer MEDICAID, SELFPAY ==
[2021-07-23 22:07] LABS: C Diff PCR Negative (Negative)
[2021-07-24 23:21] LABS: Campylobacter PCR Negative (Negative); Salmonella PCR Negative (Negative); Shiga Toxin PCR Negative (Negative); Shigella/Enteroinvasive Ecoli Negative (Negative)
[2021-07-28 11:56] LABS: Hepatitis A Antibody IgM Negative (Negative); Hepatitis B Core Antibody Negative (Negative); Hepatitis B surface Ag Negative (Negative); Hepatitis C Ab w Rflx HCV PCR Negative (Negative)
== END 2021-07-24 08:52 | disposition home or self-care (01) ==
LOC: NCHCN 08:51
PROVIDERS: PCP Physician Assistant Medical; Visit Provider Nurse Practitioner Family
DX: R74.8 Abnormal levels of other serum enzymes (principal); R10.9 Unspecified abdominal pain; R19.7 Diarrhea, unspecified
CPT/HCPCS: 86704; 86709; 86803; 87329; 87340; 87493; 87505; 83630; 87177

== ENCOUNTER 2021-09-26 16:36 | Outpatient (REF) | payer MEDICAID, SELFPAY ==
[2021-09-28 14:21] LABS: COVID-19 RT-PCR UVMMC Result Negative (Negative)
== END 2021-09-26 16:37 | disposition home or self-care (01) ==
LOC: NCHCN 16:36
PROVIDERS: PCP Physician Assistant Medical; Visit Provider Physician Assistant
DX: Z20.822 Contact with and (suspected) exposure to COVID-19 (principal); R05.8 Other specified cough
CPT/HCPCS: U0003

== ENCOUNTER 2023-01-07 17:28 | Outpatient (REF) | payer MEDICAID, SELFPAY ==
[2023-01-07 19:02] LABS: Abs Immature Grans 0.03 10^3/uL (0.0-0.06); Absolute Basophil Count 0.04 10^3/uL (0.0-0.2); Absolute Eosinophil Count 0.09 10^3/uL (0.0-0.7); Absolute Lymphocyte Count 2.84 10^3/uL (1.2-3.4); Absolute Monocyte Count 0.52 10^3/uL (0.1-0.8); Absolute Neutrophil Count 6.65 10^3/uL (1.2-6.7); Basophils % 0.4; Eosinophils % 0.9; HCT 44.4 % (36.0-46.0); Immature Grans % 0.3; Lymphocytes % 27.9; MCH 29.2 pg (27.0-33.0); MCHC 33.8 % (32.0-36.0); MCV 86 fL (80-95); MPV 11.8 fL (8.0-11.0); Monocytes % 5.1; Neutrophils % 65.4; Platelet Count 204 10^3/uL (130-400); RBC 5.14 10^6/uL (3.93-5.22); RDW 13.7 % (11.7-14.6); RDW-SD 43.1 fL; WBC 10.17 10^3/uL (4.4-10.8)
[2023-01-07 19:16] LABS: Iron 104 ug/dL (50-170); Total Iron Binding Capacity 333 ug/dL (250-450); Transferrin Sat 31 % (15-50)
[2023-01-07 19:25] LABS: ALT 22 U/L (14-59); AST 17 U/L (15-37); Albumin 4.5 g/dL (3.4-5.0); Alkaline Phosphatase 93 U/L (46-116); BUN 9 mg/dL (7-18); Bilirubin, Total 0.4 mg/dL (0.2-1.0); CREATININE 0.6 mg/dL (0.55-1.02); Calcium 9.5 mg/dL (8.5-10.1); Chloride 105 mmol/L (98-107); Estimated GFR 125.31 (mL/min/1.73m2); Ferritin 54 ng/mL (8-252); Glucose 110 mg/dL (74-106); Potassium 4.3 mmol/L (3.5-5.1); Sodium 142 mmol/L (136-145); TSH (W/Ref FT4) 1.71 uIU/mL (0.36-3.74); Total Protein 7.5 g/dL (6.4-8.2)
[2023-01-07 19:34] LABS: Vitamin D 25 Total 13.5 ng/mL (30-100)
== END 2023-01-07 17:29 | disposition home or self-care (01) ==
LOC: NCHCN 17:28
PROVIDERS: PCP Physician Assistant Medical; Visit Provider Physician Assistant
DX: R10.9 Unspecified abdominal pain (principal); R74.8 Abnormal levels of other serum enzymes; R19.7 Diarrhea, unspecified; E55.9 Vitamin D deficiency, unspecified
CPT/HCPCS: 80053; 82306; 82728; 83540; 83550; 84443; 85025

== ENCOUNTER 2023-04-08 14:15 | Outpatient (REF) | payer MEDICAID, SELFPAY | END 2023-04-08 14:16 | disposition home or self-care (01) | LOC: NCHCN 14:15 | PROVIDERS: PCP Physician Assistant Medical; Visit Provider Nurse Practitioner Family | DX: N89.8 Other specified noninflammatory disorders of vagina (principal) | CPT/HCPCS: 87480; 87510; 87660 ==

== ENCOUNTER 2023-04-22 18:38 | Outpatient (REF) | payer MEDICAID, SELFPAY ==
[2023-04-22 19:25] LABS: Abs Immature Grans 0.03 10^3/uL (0.0-0.06); Absolute Basophil Count 0.03 10^3/uL (0.0-0.2); Absolute Eosinophil Count 0.15 10^3/uL (0.0-0.7); Absolute Lymphocyte Count 1.68 10^3/uL (1.2-3.4); Absolute Monocyte Count 0.39 10^3/uL (0.1-0.8); Absolute Neutrophil Count 5.16 10^3/uL (1.2-6.7); Basophils % 0.4; HCT 44.3 % (36.0-46.0); HGB 14.9 g/dL (11.2-15.7); Immature Grans % 0.4; Lymphocytes % 22.6; MCH 29.3 pg (27.0-33.0); MCHC 33.6 % (32.0-36.0); MCV 87 fL (80-95); MPV 11.8 fL (8.0-11.0); Monocytes % 5.2; Neutrophils % 69.4; Platelet Count 227 10^3/uL (130-400); RBC 5.08 10^6/uL (3.93-5.22); RDW 13.3 % (11.7-14.6); RDW-SD 42.9 fL; WBC 7.44 10^3/uL (4.4-10.8)
[2023-04-22 19:36] LABS: ALT 22 U/L (14-59); AST 26 U/L (15-37); Albumin 4.4 g/dL (3.4-5.0); Alkaline Phosphatase 93 U/L (46-116); Amylase 42 U/L (25-115); BUN 8 mg/dL (7-18); Bilirubin, Total 0.4 mg/dL (0.2-1.0); CREATININE 0.8 mg/dL (0.55-1.02); Calcium 9.6 mg/dL (8.5-10.1); Chloride 105 mmol/L (98-107); Estimated GFR 102.86 (mL/min/1.73m2); Glucose 88 mg/dL (74-106); Lipase 29 U/L (16-77); Sodium 142 mmol/L (136-145); Total Protein 8.4 g/dL (6.4-8.2)
== END 2023-04-22 18:39 | disposition home or self-care (01) ==
LOC: NCHCN 18:38
PROVIDERS: PCP Physician Assistant Medical; Visit Provider Physician Assistant
DX: R19.7 Diarrhea, unspecified (principal); R10.11 Right upper quadrant pain
CPT/HCPCS: 80053; 83690; 82150; 85025

== ENCOUNTER 2023-07-18 00:37 | Emergency (ER) | payer MEDICAID, SELFPAY ==
[2023-07-18 00:41] VITALS: BP 138/100; PULSE 87; RESP 16; TEMP 36.4; O2SAT 99
--- NOTE | 2023-07-18 00:53 | ED.GENADUL_ITS ---
Discharge Plan Disposition Patient Disposition: Home Discharge Details Clinical Impression: Left facial pressure and pain Primary Care Provider: Marin Rosenberg V ED Provider: Isidoro Sparrow Home Meds and New Rx's Prescriptions: New clindamycin HCl 150 mg capsule 450 mg PO Q8H 7 Days Qty: 63 0RF chlorhexidine gluconate [Peridex] 0.12 % mouthwash 15 ml mucous membrane BID 5 Days Qty: 15 0RF No Action citalopram 20 mg tablet 20 mg PO DAILY Qty: 60 6RF ciprofloxacin HCl [Cipro] 500 mg tablet 500 mg PO BID Qty: 14 0RF Discharge Instructions Additional Instructions: You were seen in the emergency department for your dental and facial pain. Please take these antibiotics as directed. Please call a dentist on Wednesday morning for follow-up. Please return to the emergency department if you develop sore throat fever difficulty swallowing worsening pain or have any other concerns. Please also use this mouthwash if it is not too expensive. For your pain please take medications as follows: 1. Take acetaminophen (Tylenol), 1,000 mg (two 500 mg tabs) every 6 hours 2. Take ibuprofen (Advil), 400 mg every 6 hours. Discharge Data Discharge Date/Time-TO BE ENTERED AT DEPARTURE: 07/18/23 01:19 Medical Decision Making This is an overall very well-appearing afebrile and not tachycardic 27-year-old female with left maxillary dental discomfort and inferior mild swelling with discomfort concerning for dental infection. She does not have signs of a partially erupted wisdom tooth to suggest increased risk for pericoronitis. No brawny edema submentally to suggest Ludewig's angina. Furthermore doubt deep space infection less likely given no blunting of inferior border of the mandible nor any trismus. She does have some percussive tenderness to her maxillary wisdom tooth, tooth #16, concerning for periapical abscess for which she will receive treatment with clindamycin given hives from amoxicillin. We will also add on chlorhexidine swish and spit. I considered sexually-transmitted infection however the patient has no sore throat and has been sexually active with the same partner for the past 6 years so I felt that pharyngitis secondary to chlamydia and trichomonas were unlikely.I also considered sialolithiasis and sialoadenitis however the patient was not having any increasing pain or swelling during mealtime.I also considered parotitis however the patient has not had a prodrome of fevers headache myalgias or arthralgias and she has no parotid swelling. Given her left facial pain and pain with chewing I considered ACS however the patient is not having chest pain and lacks risk factors for ACS. Patient is not having headache and I do not feel that her discomfort when chewing represents jaw claudication as she is unlikely to have giant cell arteritis based on her age and her lack of polymyalgia rheumatica so I did not check a ESR. No significant posterior oropharynx erythema to suggest strep pharyngitis. Good range of motion in the neck so I am not concerned for retropharyngeal abscess. Uvula midline so doubt peritonsillar abscess. I have advised patient to follow-up with dentist early next week. I gave her return indications including worsening pain worsening swelling any dysphagia difficulty handling secretions or any fevers. She understood her return indications and was discharged with an empiric trial of expectant outpatient management. 2:04 AM After considering the patient's presentation it is certainly possible that she could have sialolithiasis so I called her by phone. Unfortunately she did not answer. I left a message which I advised secretagogues as we had discussed during her emergency department presentation. HPI General Date/Time Provider Initiated Documentation: 07/18/23 00:53 . HPI Narrative: This is a previously healthy 27-year-old female who received her immunizations growing up arrived to the emergency department via private vehicle in the setting of left-sided jaw swelling and pain which started 3 days ago. She also notes she has had some swelling to her left upper molar. She reports that she has remotely had her wisdom teeth out. She feels a pressure in the side of her face. She is a daily tobacco user and occasionally smokes marijuana. She rarely drinks ethanol. She endorsed chills but not fevers. She has not seen a dentist in more than 1 year. Her pain was worse today worse when chewing. She attempted treatment at home with acetaminophen. She takes no routine medications. She reports being sexually active with a single male partner for the past 6 years and has had no new recent partners. She is not having a sore throat. She does feel a stiffness in her jaw. No nausea. No vomiting. Related Data Home Medications Medication Instructions Recorded Confirmed citalopram 20 mg tablet 20 mg PO DAILY #60 tabs 07/25/20 05/20/21 ciprofloxacin HCl 500 mg tablet 500 mg PO BID #14 tabs 04/30/21 05/20/21 (Cipro) chlorhexidine gluconate 0.12 % 15 ml mucous membrane BID 5 days 07/18/23 mouthwash (Peridex) #15 mL clindamycin HCl 150 mg capsule 450 mg PO Q8H 7 days #63 caps 07/18/23 Previous Rx's Medication Instructions Recorded citalopram 20 mg tablet 20 mg PO DAILY #60 tabs 07/25/20 ciprofloxacin HCl 500 mg tablet 500 mg PO BID #14 tabs 04/30/21 (Cipro) chlorhexidine gluconate 0.12 % 15 ml mucous membrane BID 5 days 07/18/23 mouthwash (Peridex) #15 mL clindamycin HCl 150 mg capsule 450 mg PO Q8H 7 days #63 caps 07/18/23 Allergies Allergy/AdvReac Type Severity Reaction Status Date / Time adhesive Allergy Severe itchy and Verified 05/20/21 17:31 blisters amoxicillin Allergy Severe Hives Verified 05/20/21 17:31 ethinyl estradiol Allergy Severe hives, Verified 05/20/21 17:31 [From Aviane] tachycardia levonorgestrel [From Aviane] Allergy Severe hives, Verified 05/20/21 17:31 tachycardia Penicillins Allergy Severe hives Verified 05/20/21 17:31 citalopram Allergy Other (See Unverified 05/20/21 17:31 Comment) acetaminophen [From Vicodin] AdvReac Severe get very Verified 05/20/21 17:31 mad and blacks out. hydrocodone [From Vicodin] AdvReac Severe get very Verified 05/20/21 17:31 mad and blacks out. hydromorphone [From Dilaudid] AdvReac Severe migrain Verified 05/20/21 17:31 headache, hot flashes naproxen AdvReac Severe abdominal Verified 05/20/21 17:31 pain sertraline [From Zoloft] AdvReac Severe hallucinati Verified 05/20/21 17:31 ons Sulfa (Sulfonamide AdvReac Severe nose Verified 05/20/21 17:31 Antibiotics) bleeds, vomiting General Stated Complaint: DentalOral MARCOS: 4 PFSH All Active Problems (Updated 07/18/23 @ 01:00 by Isidoro Sparrow MD) Cellulitis of left leg (Acute) Acute leg pain (Acute) Left facial pressure and pain (Acute) Cellulitis (Acute) Sterilization (Acute) BTL at time of final . Chronic pelvic pain in female (Chronic) Onset with menarche. Not responsive to OCPs. 07/2020. Depo-Lupron 7.5 mg #1 dose. Endometriosis (Chronic) Headache (Acute) Episodic. Medical History Chronic pelvic pain in female Onset with menarche. Not responsive to OCPs. 07/2020. Depo-Lupron 7.5 mg #1 dose. Endometriosis Sterilization BTL at time of final . Surgical History H/O laparoscopy For chronic pelvic pain. Laparoscopic fulguration of endometriosis implants. History of delivery X3. 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 Head: Normocephalic, atraumatic. Eye: Extraocular eye movements intact. No conjunctival injection. No scleral icterus. Ear, nose, mouth, throat: Normal voice, handling secretions normally. Patient does have some percussive tenderness posterior to tooth #16. Uvula midline. Good range of motion in neck. No significant anterior nor posterior cervical lymphadenopathy. No brawny edema submentally. Bilateral TMs clear. No significant extraoral swelling. Neck: Trachea midline. Cardiovascular: Well-perfused distal extremities. Respiratory: Nonlabored respiration. Gastrointestinal: Nondistended abdomen. Musculoskeletal: No edema. Moving all 4 extremities spontaneously. Skin: Normal for age and race, grossly normal temperature and turgor. No acute rash. Neurologic: Alert and appropriate, no apparent acute deficits. Psychiatric: Mood and manner are appropriate. Grooming and personal hygiene are appropriate. Course Vital Signs Vital signs: Vital Signs Temperature 36.4 C L 07/18/23 00:41 Pulse 87 07/18/23 00:41 Blood Pressure 138/100 H 07/18/23 00:41 Pulse Oximetry 99 07/18/23 00:41 Temperature 36.4 C L 07/18/23 00:41 Temperature Source Oral 07/18/23 00:41 Pulse 87 07/18/23 00:41 Respiratory Effort Normal, Non-Labored 07/18/23 00:47 Blood Pressure 138/100 H 07/18/23 00:41 Pulse Oximetry 99 07/18/23 00:41 Oxygen Delivery Method Room Air 07/18/23 00:41 Oxygen Flow Rate 0 07/18/23 00:41 Pain Level 4 07/18/23 00:47 PAWSS Have you Been Recently Intoxicated or Drunk Within the Last 30 days?: No Have you Ever Experienced Previous Episodes of Alcohol Withdrawal?: No Have you ever Experienced Withdrawal Seizures?: No Have you ever Experienced Delirium Tremens(DT)s?: No Have you ever undergone Alcohol Rehabilitation Treatment (i.e, inpt ot outpatient treatment programs)?: No Have you ever Experienced Blackouts?: No Have you ever Combined Alcohol with other Downers within the last 90 days?: No Have you ever Combined Alcohol with any other Substance of Abuse during the last 90 days?: No Positive Blood Alcohol level on Presentation? [PCS.BAL]: No Evidence of Increased Autonomic Activity (i.e. HR>120, tremor, sweating, agitation, nausea)?: No Result: 0
[2023-07-18] MEDS: Clindamycin 150 MG CAP 450 MG PO (01:04)
[2023-07-18] MEDS: Ibuprofen 600 MG TAB PO (01:04)
== END 2023-07-18 01:19 | disposition home or self-care (01) ==
PROVIDERS: Emergency Provider Emergency Medicine; PCP Physician Assistant Medical
DX: G50.1 Atypical facial pain (principal); R22.0 Localized swelling, mass and lump, head
CPT/HCPCS: 99283; 99284

== ENCOUNTER 2024-02-15 12:44 | Outpatient (REF) | payer MEDICAID, SELFPAY ==
[2024-02-15 19:18] LABS: Abs Immature Grans 0.03 10^3/uL (0.0-0.06); Absolute Basophil Count 0.05 10^3/uL (0.0-0.2); Absolute Eosinophil Count 0.16 10^3/uL (0.0-0.7); Absolute Lymphocyte Count 2.57 10^3/uL (1.2-3.4); Absolute Neutrophil Count 5.72 10^3/uL (1.2-6.7); Basophils % 0.6; Eosinophils % 1.8; HCT 45.8 % (36.0-46.0); HGB 15.1 g/dL (11.2-15.7); Immature Grans % 0.3; Lymphocytes % 28.8; MCH 29.2 pg (27.0-33.0); MCV 89 fL (80-95); MPV 12.5 fL (8.0-11.0); Monocytes % 4.5; Platelet Count 200 10^3/uL (130-400); RBC 5.17 10^6/uL (3.93-5.22); RDW 13.4 % (11.7-14.6); RDW-SD 43.9 fL; WBC 8.93 10^3/uL (4.4-10.8)
[2024-02-15 19:34] LABS: ALT 22 U/L (14-59); AST 19 U/L (15-37); Albumin 4.3 g/dL (3.4-5.0); Alkaline Phosphatase 94 U/L (46-116); Anion Gap 9.4 mmol/L (3-11); BUN 14 mg/dL (7-18); Bilirubin, Total 0.3 mg/dL (0.2-1.0); CO2 27.6 mmol/L (21.0-32.0); CREATININE 0.6 mg/dL (0.55-1.02); Calcium 9.4 mg/dL (8.5-10.1); Chloride 106 mmol/L (98-107); Estimated GFR 124.53 (mL/min/1.73m2); Glucose 84 mg/dL (74-106); Potassium 4.1 mmol/L (3.5-5.1); Sodium 143 mmol/L (136-145); TSH (W/Ref FT4) 2.41 uIU/mL (0.36-3.74); Total Protein 7.4 g/dL (6.4-8.2); Troponin I < 50 ng/L (< or =60)
[2024-02-15 19:47] LABS: Vitamin D 25 Total 13.1 ng/mL (30-100)
== END 2024-02-15 12:45 | disposition home or self-care (01) ==
LOC: NCHCN 12:44
PROVIDERS: PCP Physician Assistant Medical; Visit Provider Physician Assistant
DX: R00.2 Palpitations (principal); R07.89 Other chest pain; E55.9 Vitamin D deficiency, unspecified
CPT/HCPCS: 80053; 82306; 84443; 84484; 85025

== ENCOUNTER 2024-05-03 13:31 | Outpatient (REF) | payer MEDICAID, SELFPAY ==
[2024-05-03 22:13] LABS: Vitamin D 25 Total 16.4 ng/mL (30-100)
== END 2024-05-03 13:32 | disposition home or self-care (01) ==
LOC: NCHCN 13:31
PROVIDERS: PCP Physician Assistant Medical; Visit Provider Physician Assistant
DX: E55.9 Vitamin D deficiency, unspecified (principal)
CPT/HCPCS: 82306

== ENCOUNTER 2024-07-28 15:18 | Outpatient (REF) | payer MEDICAID, SELFPAY | END 2024-07-28 15:19 | disposition home or self-care (01) | LOC: NCHCN 15:18 | PROVIDERS: PCP Physician Assistant Medical; Visit Provider Physician Assistant | DX: E55.9 Vitamin D deficiency, unspecified (principal) | CPT/HCPCS: 82306 ==

== ENCOUNTER 2025-01-07 14:55 | Emergency (ER) | payer MEDICAID, SELFPAY ==
[2025-01-07 14:59] VITALS: BP 137/80; PULSE 98; RESP 16; TEMP 36.4; O2SAT 97
--- NOTE | 2025-01-07 15:31 | ED.GENADUL_ITS ---
Discharge Plan Disposition Patient Disposition: Home Condition: Good Discharge Details Clinical Impression: Abscess of groin Primary Care Provider: Marin Rosenberg V ED Provider: Bethany Stevens Home Meds and New Rx's Prescriptions: New doxycycline hyclate 100 mg tablet 100 mg PO BID Qty: 14 0RF Continued citalopram 20 mg tablet 20 mg PO DAILY Qty: 60 6RF Discharge Instructions Instructions: Abscess Incision and Drainage ED Additional Instructions: As we discussed it appears that you had a recurrent abscess which was drained in the emergency department. Please complete sitz bath's multiple times a day to continue to encourage drainage. We continue to change the gauze and just check these into your underwear to help prevent any drainage injury or clothing. Please monitor for worsening signs of infection including redness of the redness, pain, fever/chills. If you develop these or the new is worsening symptoms seek care urgently once again. Please take the antibiotics as prescribed. Even if symptoms improve, please take the entire course. Please follow-up with your primary care next 1 to 2 weeks for reevaluation. Referral for dermatology for your current just has been sent. Antibiotic can cause irritation if in direct sun- protect yourself if in the sun. Referrals: Marin Rosenberg V [Primary Care Provider] - Discharge Data Discharge Date/Time-TO BE ENTERED AT DEPARTURE: 01/07/25 17:41 HPI General Date/Time Provider Initiated Documentation: 01/07/25 15:02 . Limitations to Documentation: no limitations . Information obtained by: patient and RN notes reviewed . History of Present Illness 29 year old F presents to the emergency department with the chief complaint of Boil in groin, described as moderate and similar to prior episodes, Quality is described as burning and stabbing, and is localized to the genitals. Patient reports no radiation. Patient started experiencing this day(s) and it has been constant. Immobilization improves symptom(s), Movement worsens symptoms (Or pressure on the area) . Patient notes no other symptoms.. Patient did receive the following treatments prior to arrival, none Related Data Home Medications ?Medication ?Instructions ?Recorded ?Confirmed citalopram 20 mg tablet 20 mg PO DAILY #60 tabs 07/25/20 01/07/25 doxycycline hyclate 100 mg tablet 100 mg PO BID #14 tabs 01/07/25 Previous Rx's ?Medication ?Instructions ?Recorded citalopram 20 mg tablet 20 mg PO DAILY #60 tabs 07/25/20 doxycycline hyclate 100 mg tablet 100 mg PO BID #14 tabs 01/07/25 Allergies Allergy/AdvReac Type Severity Reaction Status Date / Time adhesive Allergy Severe itchy and Verified 01/07/25 15:02 blisters amoxicillin Allergy Severe Hives Verified 01/07/25 15:02 ethinyl estradiol (From Allergy Severe hives, Verified 01/07/25 15:02 Aviane) tachycardia levonorgestrel (From Aviane) Allergy Severe hives, Verified 01/07/25 15:02 tachycardia Penicillins Allergy Severe hives Verified 01/07/25 15:02 citalopram Allergy Other (See Unverified 01/07/25 15:02 Comment) acetaminophen (From Vicodin) AdvReac Severe get very Verified 01/07/25 15:02 mad and blacks out. hydrocodone (From Vicodin) AdvReac Severe get very Verified 01/07/25 15:02 mad and blacks out. hydromorphone (From Dilaudid) AdvReac Severe migrain Verified 01/07/25 15:02 headache, hot flashes naproxen AdvReac Severe abdominal Verified 01/07/25 15:02 pain sertraline (From Zoloft) AdvReac Severe hallucinati Verified 01/07/25 15:02 ons Sulfa (Sulfonamide AdvReac Severe nose Verified 01/07/25 15:02 Antibiotics) bleeds, vomiting General Stated Complaint: RashLesion MARCOS: 3 Review of Systems Constitutional Constitutional: Reports as per HPI, Denies chills and Denies fever(s) Musculoskeletal Musculoskeletal: Reports as per HPI Integumentary/Breasts Skin/Breast: Reports as per HPI Neurologic Neurologic: Reports as per HPI Exam Const General: cooperative, healthy appearing, no acute distress and well developed Nutritional Appearance: average body habitus and well nourished Orientation: alert and awake Resp Effort & Inspection: normal respiratory effort, able to speak in complete sentences and no respiratory distress Cardio Rate: regular rate Rhythm: regular rhythm GI Inspection: normal to inspection Palpation: soft and nontender Female genitals images: 2 1. Location of erythema, induration and fluctuance concerning for abscess. No opening or drainage. This seems quite localized to this region and does not involve the Bartholin gland or female genitalia. Neuro General: patient alert and patient awake Cognition: normal cognition Speech: speech normal Gait: normal gait Course Vital Signs Vital signs: Vital Signs Temperature 36.4 C 01/07/25 14:59 Pulse 98 H 01/07/25 14:59 Respiratory Rate 16 01/07/25 14:59 Blood Pressure 137/80 01/07/25 14:59 Pulse Oximetry 97 01/07/25 14:59 Temperature 36.4 C 01/07/25 14:59 Pulse 98 H 01/07/25 14:59 Respiratory Rate 16 01/07/25 14:59 Blood Pressure 137/80 01/07/25 14:59 Pulse Oximetry 97 01/07/25 14:59 Procedure Abscess Drainage Date of Procedure: 01/07/25 Time of Procedure: 17:09 Provider that performed the procedure: Bethany Sherwood Time Out Performed: Yes Patient Consented: Verbally Location of Exam: Groin/left side Indication: Abscess, Redness and Swelling. Local anesthetic: Lidocaine 1% and with epi, Amount of Local Anesthetic Used (mL): 2. Sterility: Non Sterile. Procedure Prep: Hand hygiene, Sterile Gloves, Chlohexidine and 11 blade. Technique used, incised with blade. Amount of fluid expressed(mL): 2. Irrigation: irrigation used. Packing: None. Outcome: Sucessful. Medical Decision Making Patient is a pleasant 29-year-old female who has had difficulty with boils historically, presenting today with chief complaint of current abscess near the left gluteal fold. She reports that she was seen by her primary care for drainage of a pilonidal abscess a few weeks ago. She reports that she has had these intermittently for several years, her father had this as well. She has not been using any antimicrobial soap or has not been guided in prevention. Nor has she been referred to dermatology historically. We will refer her to dermatology today. Patient states that she does try to keep this area clean as this is an area prone for recurrences for her and despite this her symptoms continue to worsen over the past few days. She denies any fevers or chills. No change in bowel or bladder habits. Patient is status post hysterectomy and denies . On exam, patient appears nontoxic. She does appear anxious and she is tearful. Exam of the area in question reveals it to be around 2 cm in diameter, surrounding tissue slightly indurated with fluctuant center. Concerning for abscess. She does have some erythema but this also seems very localized. It does not extend to the genitals and does not appear consistent with a Bartholin at this is more towards the gluteal fold. The area was explored with an ultrasound and an isolated fluid collection consistent with abscess was able to be identified. Patient is not driving, her significant other did bring her here. She is profoundly anxious we will give her Ativan prior to I&D. Patient I discussed I&D at length along with risk benefits, expected procedural steps as well as alternatives. She voiced understanding and wished to proceed. Let was applied prior to procedure and allowed to set. The area was then anesthetized with 1% lidocaine with epinephrine. The patient tolerated this well and then the area was able to be opened with an 11 blade. I was able to express purulent discharge. This was then irrigated. Given the size, I do not feel that any type of packing is in the state in this area and did not feel that this is appropriate. However, I did apply bacitracin and dressing. Encouraged sitz bath's and warm soaks. Will start her on any antibiotics. Patient does have several allergies we will start her on doxycycline. Encourage follow-up with primary care. Referral for dermatology has been sent. We also discussed the use of antimicrobial soap. Strict return precautions were given. All of her questions and concerns were addressed and patient is in agreement this plan. This documentation was generated using [employer] dictation system, please disregard any oddities of phrase or misspellings. Quality:SDOH Health Related Social Needs: 2 No Data to Display PFSH All Active Problems (Updated 01/07/25 @ 17:11 by ROSANNE Melendrez) Abscess of groin (Acute) Acute leg pain (Acute) Cellulitis of left leg (Acute) Cellulitis (Acute) Sterilization (Acute) BTL at time of final . Chronic pelvic pain in female (Chronic) Onset with menarche. Not responsive to OCPs. 07/2020. Depo-Lupron 7.5 mg #1 dose. Endometriosis (Chronic) Headache (Acute) Episodic. Medical History Chronic pelvic pain in female Onset with menarche. Not responsive to OCPs. 07/2020. Depo-Lupron 7.5 mg #1 dose. Endometriosis Sterilization BTL at time of final . Surgical History H/O laparoscopy For chronic pelvic pain. Laparoscopic fulguration of endometriosis implants. History of delivery X3. 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
[2025-01-07] MEDS: LORazepam 0.5 MG TAB PO (16:20)
[2025-01-07] MEDS: Lidocaine/Epinephri/Tetracaine Topical Gel 3 ML TP (16:20)
[2025-01-07] MEDS: Lidocaine 1% Pres-Free W/EPI 1/200,000 30 ML VIAL IJ (17:37)
[2025-01-07] MEDS: Doxycycline Hyclate 100 MG, 2 CAPS/BTL PO (17:37)
== END 2025-01-07 17:41 | disposition home or self-care (01) ==
PROVIDERS: Emergency Provider Physician Assistant; PCP Physician Assistant Medical
DX: L02.214 Cutaneous abscess of groin (principal); F17.210 Nicotine dependence, cigarettes, uncomplicated
CPT/HCPCS: 10060; 99284; 99283; J2004

== ENCOUNTER 2025-07-30 20:41 | Emergency (ER) | payer MEDICAID, SELFPAY ==
[2025-07-30 20:44] VITALS: BP 140/94; PULSE 97; RESP 18; TEMP 36.6; O2SAT 98
[2025-07-30 21:06] VITALS: BP 140/94; PULSE 97; RESP 18; TEMP 36.6; O2SAT 98
--- NOTE | 2025-07-30 21:30 | DI.CT_ITS ---
Exam(s) CT HEAD CERVICAL SPINE WO EXAM: CT HEAD CERVICAL SPINE WO CLINICAL HISTORY: ROLDAN and cervical pain, prior injury to neck. TECHNIQUE: Imaging Protocol: Axial computed tomography images with coronal and sagittal reformatted images were created and reviewed COMPARISON: No exams were available for comparison FINDINGS: Head CT Ventricles and Extra axial spaces: Normal in size and morphology for the patient's age. Hemorrhage: None. Cerebral parenchyma: No evidence of mass or acute infarct. Midline shift: None. Brainstem/Cerebellum: Normal. Calvarium: Normal. Visualized Paranasal sinuses/Mastoids: Clear. Soft tissues: Unremarkable. Cervical Spine CT BONES: Vertebral body heights are maintained. Alignment is normal. There is no evidence of acute fracture. No degenerative disc changes or facet degenerative changes are seen . SOFT TISSUES: No paraspinal hematoma. The airway appears intact. No pneumothorax is seen at the lung apices. IMPRESSION: Head CT: No acute abnormality. C-spine CT: Degenerative changes, no acute abnormality. The preliminary [facility] report was reviewed. RADIATION DOSE DELIVERED: 1,136.14mGy.cm Total DLP DATA REPOSITORY: All CT scans at this facility are submitted to the National Radiology Data Registry (NRDR) Dose Index Registry (DIR) with the [employer] (ACR). RADIATION OPTIMIZATION: All CT scans at this facility use at least one of these dose optimization techniques: automated exposure control; mA and/or kV adjustment per patient size (includes targeted exams where dose is matched to clinical indication); or iterative reconstruction.
[2025-07-30] MEDS: Dexamethasone 4 MG/ML VIAL IVP (21:55)
[2025-07-30] MEDS: Prochlorperazine 10 MG/2 ML VIAL 5 MG IVP (21:55)
[2025-07-30] MEDS: Normal Saline 1,000 ML 1000 ML IV (21:56)
[2025-07-30 22:09] LABS: Abs Immature Grans 0.03 10^3/uL (0.0-0.06); HCT 45.5 % (36.0-46.0); HGB 15.0 g/dL (11.2-15.7); Immature Grans % 0.3 %; MCH 28.7 pg (27.0-33.0); MCHC 33.0 % (32.0-36.0); MCV 87 fL (80-95); MPV 11.0 fL (8.0-11.0); Platelet Count 233 10^3/uL (130-400); RBC 5.23 10^6/uL (3.93-5.22); RDW 13.3 % (11.7-14.6); RDW-SD 42.2 fL; WBC 11.01 10^3/uL (4.4-10.8)
[2025-07-30 22:23] LABS: ALT 25 U/L (14-59); AST 20 U/L (15-37); Albumin 4.5 g/dL (3.4-5.0); Alkaline Phosphatase 101 U/L (46-116); Anion Gap 7.4 mmol/L (3-11); BUN 9 mg/dL (7-18); Bilirubin, Total 0.3 mg/dL (0.2-1.0); CO2 29.6 mmol/L (21.0-32.0); Calcium 9.7 mg/dL (8.5-10.1); Chloride 102 mmol/L (98-107); Estimated GFR 101.59 (mL/min/1.73m2); Glucose 86 mg/dL (74-106); Potassium 3.6 mmol/L (3.5-5.1); Sodium 139 mmol/L (136-145); Total Protein 8.3 g/dL (6.4-8.2)
--- NOTE | 2025-07-30 22:53 | ED.GENADUL_ITS ---
Discharge Plan Disposition Patient Disposition: Against Medical Advice Condition: Stable Discharge Details Clinical Impression: Headache, Cervicalgia Primary Care Provider: Marin Rosenberg V ED Provider: Cesia Bianchi Home Meds and New Rx's Prescriptions: New prochlorperazine maleate [Compazine] 10 mg tablet 10 mg PO Q6H PRNQty: 10 0RF Continued phentermine 30 mg capsule Patient Comments: TAKE ONE CAPSULE BY MOUTH EVERY DAY albuterol sulfate 90 mcg/actuation HFA aerosol inhaler INHALATION Patient Comments: INHALE TWO PUFFS BY MOUTH EVERY 4 TO 6 HOURS NEEDED FOR WHEEZING, COUGH, OR SHORTNESS OF BREATH Qvar RediHaler 80 mcg/actuation HFA aerosol breath activated INHALATION Patient Comments: INHALE ONE PUFF BY MOUTH TWICE A DAY Discharge Instructions Instructions: Neck Pain Exercises, Headache, Adult ED Additional Instructions: You are leaving against our medical recommendation prior to review your CAT scan results being interpreted by radiology, please take Compazine as needed for headache Please follow-up with your primary care physician in the outpatient setting You can call at any point to review the results of your CAT scan imaging Please be reevaluated by your primary care physician at your earliest ability Referrals: Marin Rosenberg V [Primary Care Provider, Medicine] Discharge Data Discharge Date/Time-TO BE ENTERED AT DEPARTURE: 07/30/25 23:31 HPI General Date/Time Provider Initiated Documentation: 07/30/25 20:50 . HPI Narrative: This 29-year-old female presents with prior history of neck injury with pressure in the occipital region radiating to the front of her head. She states this started several days ago and has been intermittent since that time. She denies any trauma. She denies any history of migraine headaches or chance of pregnanc y. She has any fever or chills or vision changes. She denies any chest pain or shortness of breath. She states she occasionally has radiating pain down her arms but denies any weakness. Related Data Home Medications ?Medication ?Instructions ?Recorded ?Confirmed albuterol sulfate 90 mcg/actuation inhalation 07/30/25 aerosol inhaler beclomethasone dipropionate 80 inhalation 07/30/25 mcg/actuation HFA breath activated aerosol (Qvar RediHaler) phentermine 30 mg capsule mg 07/30/25 prochlorperazine maleate 10 mg 10 mg PO Q6H PRN #10 ta bs 07/30/25 tablet (Compazine) Previous Rx's ?Medication ?Instructions ?Recorded prochlorperazine maleate 10 mg 10 mg PO Q6H PRN #10 ta bs 07/30/25 tablet (Compazine) Allergies Allergy/AdvReac Type Severity Reaction Status Date / Time adhesive Allergy Severe itchy and Verified 07/30/25 20:49 blisters amoxicillin Allergy Severe Hives Verified 07/30/25 20:49 ethinyl estradiol (From Allergy Severe hives, Verified 07/30/25 20:49 Aviane) tachycardia levonorgestrel (From Aviane) Allergy Severe hives, Verified 07/30/25 20:49 tachycardia Penicillins Allergy Severe hives Verified 07/30/25 20:49 citalopram Allergy Other (See Unverified 07/30/25 20:49 Comment) acetaminophen (From Vicodin) AdvReac Severe get very Verified 07/30/25 20:49 mad and blacks out. hydrocodone (From Vicodin) AdvReac Severe get very Verified 07/30/25 20:49 mad and blacks out. hydromorphone (From Dilaudid) AdvReac Severe migrain Verified 07/30/25 20:49 headache, hot flashes naproxen AdvReac Severe abdominal Verified 07/30/25 20:49 pain sertraline (From Zoloft) AdvReac Severe hallucinati Verified 07/30/25 20:49 ons Sulfa (Sulfonamide AdvReac Severe nose Verified 07/30/25 20:49 Antibiotics) bleeds, vomiting General Stated Complaint: Headache MARCOS: 3 Exam Narrative Exam Narrative: Alert and oriented 29-year-old female in no acute distress pupils equal round reactive to light and accommodation no meningismus mild paraspinal cervical tenderness DTRs intact bilateral and upper lower extremities, strength and sensation intact bilateral upper extremities, ambulatory with steady gait oropharynx patent uvula midline TMs clear bilaterally Course Vital Signs Vital signs: Vital Signs Temperature 36.6 C 07/30/25 20:44 Pulse 97 H 07/30/25 20:44 Respiratory Rate 18 07/30/25 20:44 Blood Pressure 140/94 H 07/30/25 20:44 Pulse Oximetry 98 07/30/25 20:44 Temperature 36.6 C 07/30/25 21:06 Temperature Source Oral 07/30/25 21:06 Pulse 97 H 07/30/25 21:06 Respiratory Rate 18 07/30/25 21:06 Blood Pressure 140/94 H 07/30/25 21:06 Blood Pressure Position Sitting 07/30/25 21:06 Pulse Oximetry 98 07/30/25 21:06 Pain Level 5 07/30/25 21:55 Lab/Test Results Lab/Test Results: Laboratory Tests Range/Units 07/30/25 21:56 WBC (4.4-10.8) 10^3/uL 11.01 H RBC (3.93-5.22) 10^6/uL 5.23 H Hgb (11.2-15.7) g/dL 15.0 Hct (36.0-46.0) % 45.5 MCV (80-95) fL 87 MCH (27.0-33.0) pg 28.7 MCHC (32.0-36.0) % 33.0 RDW (11.7-14.6) % 13.3 Plt Count (130-400) 10^3/uL 233 MPV (8.0-11.0) fL 11.0 Immature Gran % % 0.3 Neutrophils % % 64.0 Lymphocytes % % 29.2 Monocytes % % 4.5 Eosinophils % % 1.5 Basophils % % 0.5 Nucleated RBC % (0.0-0.3) % 0.0 Absolute Neutrophils (1.2-6.7) 10^3/uL 7.05 H Absolute Lymphocytes (1.2-3.4) 10^3/uL 3.21 Absolute Monocytes (0.1-0.8) 10^3/uL 0.50 Absolute Eosinophils (0.0-0.7) 10^3/uL 0.17 Absolute Basophils (0.0-0.2) 10^3/uL 0.06 Sodium (136-145) mmol/L 139 Potassium (3.5-5.1) mmol/L 3.6 Chloride (98-107) mmol/L 102 Carbon Dioxide (21.0-32.0) mmol/L 29.6 Anion Gap (3-11) mmol/L 7.4 BUN (7-18) mg/dL 9 Creatinine (0.55-1.02) mg/dL 0.8 Est GFR (CKD-EPI 2020) (mL/min/1.73m2) 101.59 Glucose (74-106) mg/dL 86 Calcium (8.5-10.1) mg/dL 9.7 Total Bilirubin (0.2-1.0) mg/dL 0.3 AST (15-37) U/L 20 ALT (14-59) U/L 25 Alkaline Phosphatase (46-116) U/L 101 Total Protein (6.4-8.2) g/dL 8.3 H Albumin (3.4-5.0) g/dL 4.5 POC- Test(urine) Negative Medical Decision Making Results: Pending CT head, diagnostic labs do not show evidence of acute abnormality CBC chemistry Assessment and plan. Patient feeling symptomatically improved after receiving Compazine fluids and steroids for headache. CT head and cervical spine do not show significant acute abnormality however radiology has not interpreted these results. As patient is feeling marked improvement of symptoms she is requesting discharge home. As her images have not been formally read she is living against medical recommendation. She is fully alert, oriented, and of decisional capacity. Patient is otherwise stable for discharge home at this time return precautions reviewed and patient expressed understanding [facility] All Active Problems (Updated 07/30/25 @ 22:46 by ROSANNE Mark) Cervicalgia (Acute) Headache (Acute) Acute leg pain (Acute) Cellulitis of left leg (Acute) Cellulitis (Acute) Sterilization (Acute) BTL at time of final . Chronic pelvic pain in female (Chronic) Onset with menarche. Not responsive to OCPs. 07/2020. Depo-Lupron 7.5 mg #1 dose. Endometriosis (Chronic) Headache (Acute) Episodic. Medical History Chronic pelvic pain in female Onset with menarche. Not responsive to OCPs. 07/2020. Depo-Lupron 7.5 mg #1 dose. Endometriosis Sterilization BTL at time of final . Surgical History H/O laparoscopy For chronic pelvic pain. Laparoscopic fulguration of endometriosis implants. History of delivery X3. 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
[2025-07-30 23:09] VITALS: BP 126/81; PULSE 87; RESP 16; O2SAT 16
--- NOTE | 2025-07-30 23:13 | DI.VRAD_ITS ---
PROCEDURE INFORMATION: Exam: CT Head Without Contrast Exam date and time: 07/30/2025 10:21 PM Age: 29 years old Clinical indication: Pain; Headache; Cervicalgia; Additional info: ROLDAN and cervical pain, prior injury to neck. PT sts injury x years ago TECHNIQUE: Imaging protocol: Computed tomography of the head without contrast. COMPARISON: MR C SPINE WO CONTRAST 12/12/2021 1:10 PM FINDINGS: Brain: Normal. No hemorrhage. Unremarkable white matter. No mass effect. Cerebral ventricles: No ventriculomegaly. Paranasal sinuses: Visualized sinuses are unremarkable. No fluid levels. Mastoid air cells: Visualized mastoid air cells are well aerated. Bones: Unremarkable. No acute fracture. Soft tissues: Unremarkable. IMPRESSION: No acute intracranial abnormality. PROCEDURE INFORMATION: Exam: CT Cervical Spine Without Contrast Exam date and time: 07/30/2025 10:21 PM Age: 29 years old Clinical indication: Pain; Headache; Cervicalgia; Additional info: ROLDAN and cervical pain, prior injury to neck. PT sts injury x years ago TECHNIQUE: Imaging protocol: Computed tomography of the cervical spine without contrast. COMPARISON: MR C SPINE WO CONTRAST 12/12/2021 1:10 PM FINDINGS: Bones: No acute fracture. Normal alignment. Straightening of lordosis. No significant disc bulge or herniation. No severe spinal canal stenosis. No significant neural foraminal narrowing. Lungs: Lung apices are normal. Soft tissues: Unremarkable. IMPRESSION: 1. No acute fracture or subluxation. 2. Straightening of lordosis. Dictated and Authenticated by: Sonido Kirk MD. Orderin Arias Callaway MD
--- NOTE | 2025-08-03 15:40 | NUR.NOTE ---
Nursing Note: in pt chart d/t patient calling in for questions for the provider related to recent visit to ED
== END 2025-07-30 23:31 | disposition left against medical advice (07) ==
PROVIDERS: Emergency Provider Physician Assistant; PCP Physician Assistant Medical
DX: M54.2 Cervicalgia (principal); R51.9 Headache, unspecified; Z53.20 Procedure and treatment not carried out because of patient's decision for unspecified reasons
CPT/HCPCS: 36415; 80053; 81025; 96361; 96374; 96375; 99284; 70450; 72125; 85025; J0780; J1100